=== PATIENT | male | born 1950 | race Caucasian/White ===

== ENCOUNTER → 2017-07-18 | Outpatient (CLI) | payer OTHER ==
[~2017-07-18] MED LIST: ASPI81TA21 PO; ATOR-54 PO; CHOL200010 PO; CMD6 PO; DILT240C74 PO; DIPH25CA50 PO; FLUT0.0529 NAE; INSPMPHMLG; LISI-789 PO; LSX20 PO; METF1TAB53 PO; METO-596 PO; MULTTAB PO; POTA10CA28 PO; SENN-91 PO; SIMV20TA5 PO; SNG10 PO; SPIR25TA PO; VENL150T33 PO; [UNRECOGNIZED DRUG - REMARK] PO
[2017-07-18 14:29] LABS: ESTIMATED AVERAGE GLUCOSE 269 mg/dl; HA1C FLAG Normal (Normal)
[2017-07-18 15:28] LABS: ALKALINE PHOSPHATASE 135 U/L (45-117); ALT/SGPT 36 U/L (12-78); AST/SGOT 14 U/L (15-37); BLOOD UREA NITROGEN 16 mg/dl (7-18); BUN/CREATININE RATIO 15.9 (10-20); CALCIUM 8.7 mg/dl (8.5-10.1); CARBON DIOXIDE 23 mmol/L (21-32); CHLORIDE 99 mmol/L (98-107); CHOLESTEROL 149 mg/dl (0-200); CHOLESTEROL/HDL RATIO 4.1; CREATININE 0.99 mg/dl (0.60-1.40); GLUCOSE 390 mg/dl (70-99); HDL CHOLESTEROL 36 mg/dl; POTASSIUM 4.8 mmol/L (3.5-5.1); SODIUM 133 mmol/L (136-145); TRIGLYCERIDES 528 mg/dl (0-150)
[2017-07-18 16:38] LABS: CREATININE RANDOM URINE 41.8 mg/dl
[2017-07-18 16:50] LABS: RATIO 14.1 mcg/mg (0-30.0)
== END | disposition home or self-care (01) ==
LOC: C.LAB1850 12:22
PROVIDERS: ATTEND Physician Assistant
DX: E11.9 Type 2 diabetes mellitus without complications (principal)

== ENCOUNTER → 2017-11-15 | Outpatient (CLI) | payer OTHER ==
[2017-11-15 13:35] LABS: HEMOGLOBIN A1C 8.1 % (4.5-5.6)
== END | disposition home or self-care (01) ==
LOC: C.LAB1850 12:16
PROVIDERS: ATTEND Physician Assistant
DX: E11.9 Type 2 diabetes mellitus without complications (principal)

== ENCOUNTER → 2017-11-25 | Outpatient (CLI) | payer OTHER | END | disposition home or self-care (01) | LOC: C.LAB1850 09:08 | PROVIDERS: ATTEND Physician Assistant | DX: E03.9 Hypothyroidism, unspecified (principal) ==

== ENCOUNTER → 2018-02-08 | Outpatient (CLI) | payer OTHER ==
[~2018-02-08] MED LIST changes: +ASPI-319 PO; -ASPI81TA21 PO
[2018-02-08 14:30] LABS: ALBUMIN 3.7 gm/dl (3.4-5.0); CALCIUM 9.1 mg/dl (8.5-10.1)
[2018-02-08 14:31] LABS: FOLLICLE STIMULAT HORMONE 6.84 IU/L; LUTEINIZING HORMONE 4.1 IU/L
[2018-02-09 08:06] LABS: HEMOGLOBIN A1C 7.1 % (4.5-5.6)
== END | disposition home or self-care (01) ==
LOC: C.LAB1850 11:52
PROVIDERS: ATTEND Physician Assistant
DX: E11.9 Type 2 diabetes mellitus without complications (principal); Z79.4 Long term (current) use of insulin; E78.5 Hyperlipidemia, unspecified; E03.9 Hypothyroidism, unspecified; E66.9 Obesity, unspecified; I10 Essential (primary) hypertension

== ENCOUNTER 2019-03-27 15:04 | Inpatient (IN) ==
[2019-03-27] MEDS ORDERED: cefTRIAXone SODIUM 2,000 MG in DEXTROSE 5% 50 ML IV STA (15:45)
--- NOTE | 2019-03-27 15:55 | XRay Report ---
XR chest 1V portable HISTORY: 69 years-old Male Sepsis acute sepsis COMPARISON: Chest radiograph 07/12/2014 TECHNIQUE: Portable AP view of the chest FINDINGS: Cardiac silhouette is enlarged, unchanged. Prior median sternotomy. Unchanged mild right hemidiaphrag matic elevation. Subsegmental bibasilar opacities suggest atelectasis. Degenerative changes of the sh oulders and spine. IMPRESSION: Cardiomegaly without acute process. The above report was generated using voice recognition software. It may contain grammatical, syntax o r spelling errors. Electronically signed by: Kt Rojas M.D. 03/27/2019 3:54 PM
[2019-03-27 17:05] LABS: Hemoglobin 14.5 g/dL (14.0-18.0); Immature Granulocytes # (auto) 0.04 K/uL (0.00-0.02); Immature Granulocytes % (auto) 0.4 %; Lymphocytes # (auto) 0.78 K/uL (1.2-3.4); Lymphocytes % (auto) 7.7 %; Mean Corpuscular Hgb Conc 35.4 g/dL (32-36); Mean Corpuscular Volume 84.4 fL (80-100); Mean Platelet Volume 9.2 fL (7.4-10.4); Monocytes # (auto) 0.78 K/uL (0.11-0.59); Monocytes % (auto) 7.7 %; Neutrophils # (auto) 8.51 K/uL (1.4-6.5); Neutrophils % (auto) 84.2 %; Platelet Count 122 K/uL (130-400); RDW Coefficient of Variation 13.9 % (11.5-14.5); RDW Standard Deviation 42.8 fL (36.4-46.3); Red Blood Count 4.86 M/uL (4.7-6.1); White Blood Count 10.11 K/uL (4.8-10.8)
[2019-03-27 17:19] LABS: INR 1.3 (0.9-1.1); Partial Thromboplastin Ratio 1.2; Partial Thromboplastin Time 31.8 Seconds (21.0-31.0); Prothrombin Time 13.5 Seconds (9.0-12.0)
[2019-03-27 17:22] LABS: Alanine Aminotransferase 33 U/L (12-78); Albumin Level 3.2 gm/dl (3.4-5.0); Aspartate Aminotransferase 22 U/L (15-37); BUN Creatinine Ratio 15.2 (10-20); Blood Urea Nitrogen 12 mg/dl (7-18); Calcium 9.1 mg/dl (8.5-10.1); Carbon Dioxide 24 mmol/L (21-32); Chloride 95 mmol/L (98-107); Est GFR (African American) 107.7; Est GFR (Non-African American) 92.9; Glucose 197 mg/dl (70-99); Potassium 3.8 mmol/L (3.5-5.1); Sodium 130 mmol/L (136-145)
[2019-03-27 17:25] LABS: Albumin Globulin Ratio 0.7 (0.9-2); Alkaline Phosphatase 95 U/L (45-117); Bilirubin,Total 1.3 mg/dl (0.2-1); Globulin 4.3 gm/dl (2.5-4.0); Total Protein 7.5 gm/dl (6.4-8.2)
[2019-03-27] MEDS ORDERED: dilTIAZem HCl 5 MG/ML 5 ML VIAL IV STA (17:26)
[2019-03-27] MEDS ORDERED: SODIUM CHLORIDE 0.9% 1000ML 2,000 ML IV ONE (17:27)
[2019-03-27] MEDS ORDERED: MoRPHine SULFATE 4 MG/ML 1 ML CARP\\VIAL IV STA (17:30)
[2019-03-27] MEDS ORDERED: ONDANSETRON INJ 2 MG/ML 2 ML VIAL IV STA (17:30)
[2019-03-27] MEDS ORDERED: dilTIAZem HCl 125 MG in DEXTROSE 5% 100 ML IV SCH (17:30)
[2019-03-27] MEDS ORDERED: METOPROLOL TARTRATE 1 MG/ML VIAL IV STA ×2 (17:35→18:05)
--- NOTE | 2019-03-27 18:28 | Emergency Department Note ---
Entered by Renuka Marcos acting as a scribe for History of Present Illness General Chief complaint: Infection, Wound Stated complaint: WOUND INFECTION ON ABDOMEN Source: patient History of Present Illness Provider complaint: worsening rash Onset (ago): hour(s) (this morning) Location: abdomen Pain Consistency: + other (worsening) Maximum Pain Intensity: 7 Quality: + other (rash) Associated symptoms: + cough and + fever/chills The patient is a 69 year old male with a PMHx of CHF, a cholecystectomy, and a CABG who presents to the Emergency Department with complaints of a worsening rash on his abdomen this morning. He states that his rash began 3 days ago and states that it is painful. He reports a recent cholecystectomy. The patient states that he is currently not on antibiotics. The patient reports a history of cellulitis on his abdomen and his left leg. He does report having a cough and a runny nose but states that they have not been as bad as usual. He reports that he had chills yesterday and felt warm today but did not take his temperature. Home Medications Home Medications Medication Instructions Recorded Confirmed Type aspirin [Aspir-81] 162 mg PO DAILY 06/27/18 03/27/19 History cholecalciferol (vitamin D3) 4,000 unit PO QAM 06/27/18 03/27/19 History diphenhydramine HCl 25 mg PO BID 06/27/18 03/27/19 History furosemide 20 mg PO BID 06/27/18 03/27/19 History lisinopril 2.5 mg PO QAM 06/27/18 03/27/19 History metformin 1,000 mg PO BID 06/27/18 03/27/19 History metoprolol tartrate 150 mg PO BID 06/27/18 03/27/19 History montelukast 10 mg PO PM 06/27/18 03/27/19 History multivitamin 1 tab PO QAM 06/27/18 03/27/19 History potassium chloride 10 meq PO QAM 06/27/18 03/27/19 History sennosides-docusate sodium 1 tab PO 3XWK PRN 06/27/18 03/27/19 History spironolactone 25 mg PO QPM 06/27/18 03/27/19 History atorvastatin 40 mg PO HS 03/27/19 03/27/19 History bupropion HCl 200 mg PO BID 03/27/19 03/27/19 History diltiazem HCl [DILT-XR] 240 mg PO QAM 03/27/19 03/27/19 History dulaglutide [Trulicity] 1.5 mg SUBCUT WK 03/27/19 03/27/19 History fluticasone propionate [Flonase 2 spray INTRANASAL DAILY PRN 03/27/19 03/27/19 History Allergy Relief] insulin degludec [Tresiba 80 unit SUBCUT HS 03/27/19 03/27/19 History FlexTouch U-200] insulin lispro [Humalog KwikPen 60 unit SUBCUT TIDM 03/27/19 03/27/19 History Insulin] levothyroxine 88 mcg PO QAM 03/27/19 03/27/19 History venlafaxine 75 mg PO QAM 03/27/19 03/27/19 History venlafaxine 150 mg PO QAM 03/27/19 03/27/19 History warfarin 6 mg PO 4XWK 03/27/19 03/27/19 History warfarin 9 mg PO 3XWK 03/27/19 03/27/19 History Allergies Allergy/AdvReac Type Severity Reaction Status Date / Time Iodinated Contrast- Oral and Allergy Unknown chest Verified 03/27/19 17:20 IV Dye pain/vomiting Penicillins Allergy Unknown UNKNOWN - Verified 03/27/19 17:20 HAPPENED CHILD Past Med/Surg History Medical History Atrial fibrillation CHRONIC, ON COUMADIN. BPH (benign prostatic hyperplasia) CAD (coronary artery disease) S/P STENT TO RCA 1992 AND 3 VESSEL CABG 2013. Congestive heart failure DIASTOLIC Diabetes mellitus, type 2 IDDM Gout Hyperlipidemia Hypertension Myocardial Infarction X2, LAST ONE IN 2012. S/P CABG 3 VESSEL, [facility]. Obesity Sleep apnea CPAP, MODERATE PER 2018 SLEEP STUDY Stable angina pectoris CLASS 1-2 Surgical History H/O arthroscopy of shoulder H/O colonoscopy History of appendectomy History of arthroscopy LEFT KNEE ACL REPAIR History of cardiac cath 1992, STENT TO RCA 2002, BALLOON ANGIOPLASTY RCA 2013, FOLLOWED BY CABG 3 VESSEL History of cholecystectomy History of coronary artery bypass graft 3 VESSEL 2012, [facility] [place] History of herniorrhaphy UMBILICAL History of repair of ACL History of tonsillectomy Hx of transurethral resection of prostate Social History Preferred Language: Italian Communication Ability: Effective Visual Impairment: No Limitations Beliefs That Will Affect Care: None Current Living Situation: Spouse Feels Safe at Home: Yes Smoking Status: Former smoker Tobacco Type: cigarettes Cigarettes Per Day: ON/OFF SOCIAL SMOKER Second Hand Exposure: No Hx Alcohol Use: Yes Hx Substance Use: No Review of Systems See HPI for pertinent positives & negatives. and A total of 10 systems reviewed and were otherwise negative Physical Exam Vital Signs Vital Signs - 24 hr 03/27/19 15:10 03/27/19 16:54 03/27/19 18:08 Temperature 36.5 C Temperature Source Oral Sepsis Recent Fever Within 48 Hours No Sepsis Action Taken by Nursing No Action Required Pulse Rate 122 H 111 H Pulse Rate [Apical] 122 H Respiratory Rate 20 22 Respiratory Effort / Characteristics Non-Labored Respiratory Depth Normal Blood Pressure 163/89 H 131/87 Blood Pressure [Left Arm] 127/90 Blood Pressure Mean 113 Blood Pressure Mean [Left Arm] 102 Pulse Oximetry 97 94 Oxygen Delivery Method Room Air Room Air GENERAL: Laying in bed, ill, in moderate distress. EYE EXAM: normal conjunctiva. OROPHARYNX: no exudate, no erythema, lips, buccal mucosa, and tongue normal and mucous membranes are moist NECK: supple, no nuchal rigidity, no adenopathy, non-tender LUNGS: Clear to auscultation. Normal chest wall mechanics CHEST: Midsternal incision. HEART: tachycardic, irregularly irregular ABDOMEN: abdomen soft, non-tender, normo-active bowel sounds, no masses, no rebound or guarding. Right upper quadrant incision. BACK: Back is symmetrical on inspection and there is no deformity, no midline tenderness, no CVA tenderness. SKIN: Diffuse erythema of the infra and supraumbilical region which is warm and tender. UPPER EXTREMITIES: upper extremities are grossly normal. LOWER EXTREMITIES: No pitting edema. NEURO EXAM: Normal sensorium, cranial nerves II-XII grossly intact, normal speech, no gross weakness of arms, no gross weakness of legs. Course ED COURSE: Vital signs were reviewed and showed hypertension and tachycardia. The patients medical record was reviewed 1540: The patient was evaluated in room C8. A history and physical were perf ormed. 1732: I updated the patient who verbalized agreement and understanding of the treatment plan. He was agreeable to admission. 1740: Discussed with Lizz ledezma and patient was accepted. Pt was given 2.5mg lopressor IV. 1745: Heart rate trended down to the 90s but then bumped back up to the 120s again. 1810: Patient was redosed with 2.5 mg of Lopressor IV heart rate trended down to 100 1820: Patient heart rate holding steady in the low 100s. Patient is admitted at this time and has been on the floor. Administered Medications Sodium Chloride (Nss 1000ml) 2,000 mls @ 999 mls/hr IV .Q2H1M ONE Stop: 03/27/19 19:27 Last Admin: 03/27/19 17:39 Dose: 999 mls/hr Documented by: [id number] Discontinued Medications Diltiazem HCl (Cardizem) 5 mg IV NOW STA Stop: 03/27/19 17:27 Last Admin: 03/27/19 17:50 Dose: Not Given Documented by: [id number] Ceftriaxone Sodium 2,000 mg/ (Dextrose) 70 mls @ 100 mls/hr IV NOW STA Stop: 03/27/19 16:26 Last Infusion: 03/27/19 17:58 Dose: 0 mls/hr Documented by: [id number] Admin: 03/27/19 16:53 Dose: 100 mls/hr Documented by: [id number] Metoprolol Tartrate (Lopressor) 2.5 mg IV NOW STA Stop: 03/27/19 17:36 Last Admin: 03/27/19 17:39 Dose: 2.5 mg Documented by: [id number] Metoprolol Tartrate (Lopressor) 2.5 mg IV NOW STA Stop: 03/27/19 18:06 Last Admin: 03/27/19 18:08 Dose: 2.5 mg Documented by: [id number] Morphine Sulfate (Morphine Sulfate) 3 mg IV NOW STA Stop: 03/27/19 17:31 Last Admin: 03/27/19 17:38 Dose: 3 mg Documented by: [id number] Ondansetron HCl (Zofran) 4 mg IV NOW STA Stop: 03/27/19 17:31 Last Admin: 03/27/19 17:39 Dose: 4 mg Documented by: [id number] Medical Decision Making Differential Diagnosis Differential diagnosis includes etiologies such as cellulitis, abscess, MRSA infection, DVT, necrotizing fasciitis, dermatitis, drug eruption, as well as others were entertained. Medical Records Attestation: I reviewed the patient's medical records. Home Medications Current Medication List: was personally reviewed by me Laboratory Data Attestation: I reviewed the patient's lab results. Result diagrams: 03/27/19 16:49 03/27/19 16:49 Lab Results 03/27/19 03/27/19 03/27/19 Range/Units 16:49 16:49 16:49 WBC 10.11 (4.8-10.8) K/uL RBC 4.86 (4.7-6.1) M/uL Hgb 14.5 (14.0-18.0) g/dL Hct 41.0 L (42-52) % MCV 84.4 (80-100) fL MCH 29.8 (25-34) pg MCHC 35.4 (32-36) g/dL RDW Std Deviation 42.8 (36.4-46.3) fL RDW Coeff of Adalberto 13.9 (11.5-14.5) % Plt Count 122 L (130-400) K/uL MPV 9.2 (7.4-10.4) fL Immature Gran % (Auto) 0.4 % Neut % (Auto) 84.2 % Lymph % (Auto) 7.7 % Scott % (Auto) 7.7 % Eos % (Auto) 0.0 % Baso % (Auto) 0.0 % Immature Gran # (Auto) 0.04 H (0.00-0.02) K/uL Neut # (Auto) 8.51 H (1.4-6.5) K/uL Lymph # (Auto) 0.78 L (1.2-3.4) K/uL Scott # (Auto) 0.78 H (0.11-0.59) K/uL Eos # (Auto) 0.00 (0-0.5) K/uL Baso # (Auto) 0.00 (0-0.2) K/uL PT 13.5 H (9.0-12.0) Seconds INR 1.3 H (0.9-1.1) APTT 31.8 H (21.0-31.0) Seconds PTT Ratio 1.2 Sodium 130 L (136-145) mmol/L Potassium 3.8 (3.5-5.1) mmol/L Chloride 95 L (98-107) mmol/L Carbon Dioxide 24 (21-32) mmol/L Anion Gap 11.0 (3-11) BUN 12 (7-18) mg/dl Creatinine 0.79 (0.6-1.4) mg/dl Est Cr Clr Drug Dosing Not Reportable Est GFR ( Amer) 107.7 Est GFR (Non-Af Amer) 92.9 BUN/Creatinine Ratio 15.2 (10-20) Glucose 197 H (70-99) mg/dl Lactate (0.4-2.0) mmol/L Calcium 9.1 (8.5-10.1) mg/dl Total Bilirubin 1.3 H (0.2-1) mg/dl AST 22 (15-37) U/L ALT 33 (12-78) U/L Alkaline Phosphatase 95 (45-117) U/L Total Protein 7.5 (6.4-8.2) gm/dl Albumin 3.2 L (3.4-5.0) gm/dl Globulin 4.3 H (2.5-4.0) gm/dl Albumin/Globulin Ratio 0.7 L (0.9-2) 03/27/19 Range/Units 16:49 WBC (4.8-10.8) K/uL RBC (4.7-6.1) M/uL Hgb (14.0-18.0) g/dL Hct (42-52) % MCV (80-100) fL MCH (25-34) pg MCHC (32-36) g/dL RDW Std Deviation (36.4-46.3) fL RDW Coeff of Adalberto (11.5-14.5) % Plt Count (130-400) K/uL MPV (7.4-10.4) fL Immature Gran % (Auto) % Neut % (Auto) % Lymph % (Auto) % Scott % (Auto) % Eos % (Auto) % Baso % (Auto) % Immature Gran # (Auto) (0.00-0.02) K/uL Neut # (Auto) (1.4-6.5) K/uL Lymph # (Auto) (1.2-3.4) K/uL Scott # (Auto) (0.11-0.59) K/uL Eos # (Auto) (0-0.5) K/uL Baso # (Auto) (0-0.2) K/uL PT (9.0-12.0) Seconds INR (0.9-1.1) APTT (21.0-31.0) Seconds PTT Ratio Sodium (136-145) mmol/L Potassium (3.5-5.1) mmol/L Chloride (98-107) mmol/L Carbon Dioxide (21-32) mmol/L Anion Gap (3-11) BUN (7-18) mg/dl Creatinine (0.6-1.4) mg/dl Est Cr Clr Drug Dosing Est GFR ( Amer) Est GFR (Non-Af Amer) BUN/Creatinine Ratio (10-20) Glucose (70-99) mg/dl Lactate 2.2 H* (0.4-2.0) mmol/L Calcium (8.5-10.1) mg/dl Total Bilirubin (0.2-1) mg/dl AST (15-37) U/L ALT (12-78) U/L Alkaline Phosphatase (45-117) U/L Total Protein (6.4-8.2) gm/dl Albumin (3.4-5.0) gm/dl Globulin (2.5-4.0) gm/dl Albumin/Globulin Ratio (0.9-2) Imaging Data Radiologist's Impression: Radiology results as stated below per my review and the radiologist's interpretation: XR chest 1V portable HISTORY: 69 years-old Male Sepsis acute sepsis COMPARISON: Chest radiograph 07/12/2014 TECHNIQUE: Portable AP view of the chest FINDINGS: Cardiac silhouette is enlarged, unchanged. Prior median sternotomy. Unchanged mild right hemidiaphragmatic elevation. Subsegmental bibasilar opacities suggest atelectasis. Degenerative changes of the shoulders and spine. IMPRESSION: Cardiomegaly without acute process. The above report was generated using voice recognition software. It may contain grammatical, syntax or spelling errors. Electronically signed by: Kt Rojas M.D. 03/27/2019 3:54 PM ECG Data Attestation: I personally reviewed and interpreted this ECG as follows: Indication: tachycardia Rate (beats per minute): 127 Rhythm: atrial fibrillation (with RVR) Findings: + PVC and + Q waves (Inferior) Blood Pressure Blood Pressure Findings: Elevated blood pressure Blood Pressure Disposition: further management by hospitalist REBECCA Olsen Patient is a 69-year-old male with a past medical history of cellulitis, CAD with bypass, A. fib with RVR who presents the ER for abdominal pain. He notes he started noticing redness on his belly which started this past Tuesday. Has been gradually worsened and significantly worsened over the past 24 hours. IV w as established blood work was obtained. Labs show no significant leukocytosis or anemia. Platelets show a mild thrombocytopenia at 122. INR was subtherapeutic at 1.3. BMP with mild hyponatremia at 130. Lactate was elevated 2.2. Glucose was elevated at 197. T bili slightly elevated at 1.3. EKG was fairly consistent with old but showing A. fib with RVR. Did have early R wave progression in V1 which consistent with his old as well. Patient has no chest pain or shortness of breath. Heart rate ranged from 130s to 160s intermittently. Patient was given 2 L IV fluid judiciously. Following this patient was initially given 2.5 mg of Lopressor. Heart rate trended down into the high 1 teens/low 120s. I only gave him 2.5 initially as he did drop down into the 90s at first. As he remained steady and the 1 teens to 120s I gave him an additional 2.5 mg of Lopressor and his heart rate was trending in the low 100s. Patient was already given 2 g of Rocephin. Discussed with the hospital ist. Patient was updated bedside. He will be admitted secondary to a cellulitis with an elevated left 2.2 and A. fib with RVR. He was monitored closely while in the ER. He was reevaluated multiple times. He was also given 1 dose of IV morphine while in the ER along with Zofran. Impression & Plan Cellulitis, Subtherapeutic international normalized ratio (INR), Elevated lactic acid level, Atrial fibrillation with RVR Critical Care Time Critical Care Time: Yes Total Critical Care Time: 30 I have personally spent approximately 30 minutes of critical care time in the direct management of this patient. This includes bedside care, interpretation of diagnostic studies, and testing, discussion with consultants, patient, and family members, and other required patient management activities. This 30 minutes is in excess of all separately billable procedures. Discharge Plan Visit Data Chief Complaint: Infection, Wound Stated Complaint: WOUND INFECTION ON ABDOMEN ED Provider: Jose Alfredo Lubin Discharge Problem: Cellulitis, Subtherapeutic international normalized ratio (INR), Elevated lactic acid level, Atrial fibrillation with RVR Patient Disposition: Being Evaluated by Hospitalist Forms Stand Alone Forms: My [facility] Prescriptions Prescriptions: No Action venlafaxine 75 mg capsule,extended release 24hr 75 mg PO QAM RF: 0 diltiazem HCl [DILT-XR] 240 mg capsule,ext.rel 24h degradable 240 mg PO QAM RF: 0 venlafaxine 150 mg capsule,extended release 24hr 150 mg PO QAM RF: 0 Tresiba FlexTouch U-200 200 unit/mL (3 mL) insulin pen 80 unit subcut HS RF: 0 Trulicity 1.5 mg/0.5 mL pen injector 1.5 mg subcut WK RF: 0 atorvastatin 40 mg tablet 40 mg PO HS RF: 0 levothyroxine 88 mcg tablet 88 mcg PO QAM RF: 0 warfarin 6 mg tablet 6 mg PO 4XWK RF: 0 warfarin 6 mg tablet 9 mg PO 3XWK RF: 0 bupropion HCl 200 mg tablet sustained-release 12 hr 200 mg PO BID RF: 0 multivitamin Tablet 1 tab PO QAM RF: 0 potassium chloride 10 mEq Capsule, Extended Release 10 meq PO QAM RF: 0 metoprolol tartrate 100 mg Tablet 150 mg PO BID RF: 0 sennosides-docusate sodium 8.6-50 mg Tablet 1 tab PO 3XWK PRN (Reason: Constipation) RF: 0 aspirin [Aspir-81] 81 mg Tablet,Delayed Release (Dr/Ec) 162 mg PO DAILY RF: 0 spironolactone 25 mg Tablet 25 mg PO QPM RF: 0 diphenhydramine HCl 25 mg Capsule 25 mg PO BID RF: 0 metformin 1,000 mg Tablet 1,000 mg PO BID RF: 0 montelukast 10 mg Tablet 10 mg PO PM RF: 0 furosemide 20 mg Tablet 20 mg PO BID RF: 0 lisinopril 2.5 mg Tablet 2.5 mg PO QAM RF: 0 insulin lispro 100 unit/mL Cartridge 1 sliding scale dose SUBCUT UD RF: 0 cholecalciferol (vitamin D3) 2,000 unit Tablet 4,000 unit PO QAM RF: 0 Flonase Sensimist 1 spray JONATHON UD PRN (Reason: Allergy Symptoms) RF: 0 Referrals Referrals: Aurora Lawrence DO [Primary Care Provider] - Discharge Problem: Cellulitis Qualifiers: Site of cellulitis: trunk Site of cellulitis of trunk: abdominal wall Qualified Code(s): L03.311 - Cellulitis of abdominal wall The scribe's documentation has been prepared under my direction and personally reviewed by me in its entirety. I confirm that the note above accurately reflects all work, treatment, procedures, and medical decision making performed by me.
[2019-03-27] MEDS ORDERED: ACETAMINOPHEN 325 MG TAB PO PRN (19:03)
--- NOTE | 2019-03-27 19:27 | History & Physical Report ---
Date of Service March 27, 2019 Assessment & Plan (1) Abdominal wall cellulitis: -Admit to telemetry -Patient presenting from home with reports of increasing abdominal erythema for the past 3 days -In the ED, patient is afebrile, no leukocytosis, BP stable, does have elevated heart rate however has not taken medications for the past 3 days; lactic acid mildly elevated 2.2 -Received IV ceftriaxone in the ED; will start Unasyn for concerns of possible cat scratch, check MRSA nasal swab and add vancomycin if positive -No open areas or drainage to culture; no signs of abscess on exam -Follow blood cultures -Received 2 L IVF in the ED, will hold on additional for now due to history of CHF, trend lactic acid (2) Atrial fibrillation with RVR: -History of atrial fibrillation -Has not taken medications in the past 3 days -Received IV metoprolol 5 mg in the ED -will give patient his home doses of diltiazem and metoprolol, monitor heart rate and provide additional medication if needed -INR 1.3, anticoagulated on Coumadin, will resume home dosing; no need for bridging at this time (3) Chronic diastolic CHF (congestive heart failure): -Patient appears euvolemic on exam -Received 2 L IVF in the ED -Hold diuretics for today, in the setting of infection and mildly elevated lactic acid -consider resuming tomorrow (4) CAD (coronary artery disease): -Stable, no reports of chest pain -Continue aspirin, statin, beta-shawnee, DIONICIO inhibitor (5) DM type 2 (diabetes mellitus, type 2): -Hgb A1c 7.2 03/2019 -Hold oral agents and utilize Lantus and NovoLog per protocol while hospitalized -Glycemic pharmacy consult (6) Hypertension: -BP controlled, continue lisinopril, diltiazem, metoprolol (7) Depression: -Continue venlafaxine and bupropion (8) SOLEDAD on CPAP: -CPAP as per home settings (9) Hypothyroidism: -Continue levothyroxine (10) DVT prophylaxis: -SQ Lovenox 40 mg until INR > 2.0 History of Present Illness Chief Complaint: Skin infection/rash on abdomen Primary Care Provider: Aurora Lawrence DO 69-year-old male who presents the ED for evaluation of skin infection/rash on his abdomen. Patient reports this developed about 3 days ago and has been progressively getting worse. Patient denies any known trauma or injury to his abdominal wall. However upon questioning, he does have cats and dogs as pets and reports that the cats walk over his abdomen. There is a small scratch noted on the abdomen where the patient reports the rash/infection started. He reports feeling generally weak. Reports a fever of 101 at home with some associated chills. Reports that he has felt lightheaded and dizzy however denies any syncopal event. He denies chest pain shortness of breath. No abdominal pain, nausea, vomiting, diarrhea. He denies any urinary symptoms. He reports sinus congestion, pressure, and postnasal drip which seems to be a chronic issue. Patient reports he has not taken his medications for the past 2 days and has forgotten to fill his pillbox. In the ED, patient was found to be in A. fib with RVR. He was given a total of 5 mg of IV metoprolol. Exam revealed an extensive cellulitis on his anterior abdominal wall. He is afebrile, no leukocytosis. BP stable. Lactic acid is mildly elevated 2.2. He was given IVF and IV ceftriaxone. Allergies Allergy/AdvReac Type Severity Reaction Status Date / Time Iodinated Contrast- Oral and Allergy Unknown chest Verified 03/27/19 17:20 IV Dye pain/vomiting Penicillins Allergy Unknown UNKNOWN - Verified 03/27/19 17:20 HAPPENED CHILD Home Medications Home Medications Medication Instructions Recorded Confirmed Type aspirin [Aspir-81] 162 mg PO DAILY 06/27/18 03/27/19 History cholecalciferol (vitamin D3) 4,000 unit PO QAM 06/27/18 03/27/19 History diphenhydramine HCl 25 mg PO BID 06/27/18 03/27/19 History furosemide 20 mg PO BID 06/27/18 03/27/19 History lisinopril 2.5 mg PO QAM 06/27/18 03/27/19 History metformin 1,000 mg PO BID 06/27/18 03/27/19 History metoprolol tartrate 150 mg PO BID 06/27/18 03/27/19 History montelukast 10 mg PO PM 06/27/18 03/27/19 History multivitamin 1 tab PO QAM 06/27/18 03/27/19 History potassium chloride 10 meq PO QAM 06/27/18 03/27/19 History sennosides-docusate sodium 1 tab PO Q2D 06/27/18 03/27/19 History spironolactone 25 mg PO QPM 06/27/18 03/27/19 History atorvastatin 40 mg PO HS 03/27/19 03/27/19 History bupropion HCl 200 mg PO BID 03/27/19 03/27/19 History diltiazem HCl [DILT-XR] 240 mg PO QAM 03/27/19 03/27/19 History dulaglutide [Trulicity] 1.5 mg SUBCUT WK 03/27/19 03/27/19 History fluticasone propionate [Flonase 2 spray INTRANASAL DAILY PRN 03/27/19 03/27/19 History Allergy Relief] insulin degludec [Tresiba 80 unit SUBCUT HS 03/27/19 03/27/19 History FlexTouch U-200] insulin lispro [Humalog KwikPen unit SUBCUT TIDM 03/27/19 History Insulin] levothyroxine 88 mcg PO QAM 03/27/19 03/27/19 History venlafaxine 75 mg PO QAM 03/27/19 03/27/19 History venlafaxine 150 mg PO QAM 03/27/19 03/27/19 History warfarin 6 mg PO SUTUTHSA 03/27/19 03/27/19 History warfarin 9 mg PO MOWEFR 03/27/19 03/27/19 History Past Med/Surg History Medical History Depression (Chronic) Chronic anticoagulation (Chronic) BPH (benign prostatic hyperplasia) (Chronic) Hypertension (Chronic) Chronic diastolic CHF (congestive heart failure) (Chronic) CAD (coronary artery disease) (Chronic) 1993-RCA stent 2014-CABG x3 Chronic rhinitis (Chronic) SOLEDAD on CPAP (Chronic) Hypothyroidism (Chronic) Dyslipidemia (Chronic) Gout (Chronic) DM type 2 (diabetes mellitus, type 2) (Chronic) Surgical History S/P CABG x 3 (Chronic) History of arthroscopy of left shoulder (Chronic) History of repair of anterior cruciate ligament of left knee (Chronic) History of tonsillectomy and adenoidectomy (Chronic) S/P TURP (Chronic) History of appendectomy (Chronic) History of cholecystectomy (Chronic) Family History Father Bladder cancer Mother Breast cancer Social History Preferred Language: Korean Communication Ability: Effective Visual Impairment: No Limitations Blood Donor Unit Assistant Required: No Beliefs That Will Affect Care: None Current Living Situation: Spouse Other Information That Helps Us Care for You: No Feels Safe at Home: Yes Safety Concerns: Feels Safe At This Time Smoking Status: Former smoker Tobacco Type: cigarettes Second Hand Exposure: No Hx Alcohol Use: Yes Alcohol type: beer Alcohol Intake Frequency: Rarely Hx Substance Use: No Review of Systems Review of Systems: ROS per HPI, all other systems reviewed and negative Physical Exam Constitutional: WD/WN, vitals as above + obese Eyes: PERRL, conjunctivae normal, anicteric sclerae ENMT: external ear and nose normal, oropharynx normal Mouth: + poor dentition Respiratory: normal respiratory effort, lungs clear to auscultation Cardiovascular: Rate/Rhythm: + tachycardic and + irregularly irregular Vessels: normal peripheral pulses Extremities: no edema Gastrointestinal (Abdomen): normal bowel sounds, soft, nontender, no hepatosplenomegaly Musculoskeletal: no cyanosis or clubbing, extremities motor strength 5/5 Skin: Skin is warm and dry; significant erythema covering most of the anterior abdominal wall, warm to touch, no significant open areas or drainage noted, small superficial abrasion noted above the navel Neurologic: PERRL, EOMI, accommodation nl, no face palsy, no dysarthria Psychiatric: A+Ox3, euthymic affect Results & Data Vital Signs (Past 12 Hours) Vital Signs Temp Pulse Pulse Resp BP BP Pulse Ox 03/27/19 18:37 120 H 20 131/87 95 03/27/19 18:08 111 H 131/87 03/27/19 16:54 122 H 22 127/90 94 03/27/19 15:10 36.5 C 122 H 20 163/89 H 97 Laboratory Results Short CBC 03/27/19 Range/Units 16:49 WBC 10.11 (4.8-10.8) K/uL Hgb 14.5 (14.0-18.0) g/dL Hct 41.0 L (42-52) % Plt Count 122 L (130-400) K/uL BMP 03/27/19 16:49 Sodium 130 L Potassium 3.8 Chloride 95 L Carbon Dioxide 24 BUN 12 Creatinine 0.79 Glucose 197 H Calcium 9.1 Liver Function 03/27/19 Range/Units 16:49 Total Bilirubin 1.3 H (0.2-1) mg/dl AST 22 (15-37) U/L ALT 33 (12-78) U/L Alkaline Phosphatase 95 (45-117) U/L Albumin 3.2 L (3.4-5.0) gm/dl Diagnostic Findings CXR IMPRESSION: Cardiomegaly without acute process. Code Status & VTE Plan Code Status Patient is a full code as per my discussion with him. VTE Prophylaxis Plan VTE Prophylaxis will be ordered: Yes Supervising Physician Co-Signing Physician Notes Patient is a 69-year-old male with multiple comorbidities presents with history of erythematous rash on his abdomen which has been progressively worsening since 3 days duration. He denies any trauma, insect bite but admits to have cats and dogs at home which could have caused a scratch on his abdomen. Patient states that he has generalized weakness and admits to missing his medications at least for last couple of days. He was noted to be in A. fib RVR while in ED. His INR is subtherapeutic. Also noted to have hyponatremia, hypochloremia. His glucose is elevated at 197. He admits to missing his metformin and insulin therapy. His lactate is elevated at 2.2. He received IV fluids in ED. On exam patient is obese, no apparent distress, normocephalic atraumatic, lungs are clear to auscultation, normal breath sounds, irregularly irregular rhythm,+ tachycardia, no murmur, abdomen soft, distended, erythematous rash with the abrasion noted. Grossly no focal neurological deficits, no pedal edema. Patient is admitted for management of A. fib RVR, abdominal wall cellulitis. Agree with resuming Cardizem, metoprolol, Coumadin. Lovenox SQ until INR is therapeutic. Monitor on telemetry unit. Monitor electrolytes. Check TSH, free T4. Will trend lactate levels. Resume insulin therapy and monitor blood sugar levels. Agree with IV Unasyn for abdominal wall cellulitis. Blood cultures obtained. MRSA screen pending. Consider adding vancomycin if MRSA positive. I personally reviewed the record. Patient is interviewed and examined at bedside. Patient's care is coordinated with Lizz Garcia TABLE OPERATOR. Please refer to the documentation above for details of patient's presentation and for discussion of other issues.
[2019-03-27] MEDS ORDERED: PATIENT'S HEIGHT AND/OR WEIGHT NEEDED SCH (19:30)
[2019-03-27] MEDS ORDERED: PHARMACY GLYCEMIC MGMT CONSULT PRN (19:35)
[2019-03-27] MEDS ORDERED: INSULIN GLARGINE 100 UNIT/ML VIAL SC STA (20:00)
[2019-03-27] MEDS: ENOXAPARIN INJ 40 MG/0.4 ML SYR SQ SCH (20:34)
[2019-03-27] MEDS: METOPROLOL TARTRATE 100 MG TAB PO SCH (20:34)
[2019-03-27] MEDS: BuPROPion SR 100 MG TABCR PO SCH (20:35)
[2019-03-27] MEDS: ATORVASTATIN 40 MG TAB PO SCH (20:35)
[2019-03-27] MEDS: WARFARIN SOD 6 MG TAB PO SCH (20:35)
[2019-03-27] MEDS: INSULIN ASPART 100 UNITS/ML 3 ML PEN SC SCH (20:36)
[2019-03-27] MEDS: dilTIAZem HCL 240 MG CAPCR PO SCH (20:37)
[2019-03-27] MEDS: AMPICILLIN/SULBACTAM SOD 3,000 MG in 0.9 % SODIUM CHLORIDE 100 ML IV SCH (20:37)
[2019-03-27] MEDS: MONTELUKAST SODIUM 10 MG TABLET PO SCH (20:38)
[2019-03-27 22:06] LABS: Appearance Urine Clear (Clear); Bacteria Urine Automated Negative (Negative); Bilirubin Urine Negative (Negative); Blood Urine Trace (Negative); Color Urine Yellow; Epithelial Cell Urine Auto 20-30 /lpf (0-5); Glucose Urine UA 3+ (Negative); Ketones Urine 2+ (Negative); Leukocyte Esterase Urine Negative (Negative); Nitrite Urine Negative (Negative); Protein Urine 1+ (Negative); RBC Urine Automated 0-4 /hpf (0-4); Specific Gravity Urine 1.032 (1.000-1.030); Urobilinogen Urine Negative (Negative)
[2019-03-28] MEDS: INSULIN ASPART 100 UNITS/ML 3 ML PEN SC SCH ×6 (00:07→20:42)
[2019-03-28] MEDS: AMPICILLIN/SULBACTAM SOD 3,000 MG in 0.9 % SODIUM CHLORIDE 100 ML IV SCH ×4 (02:27→20:33)
[2019-03-28 05:56] LABS: Hematocrit (blood only) 40.7 % (42-52); Hemoglobin 13.8 g/dL (14.0-18.0); Mean Corpuscular Hgb Conc 33.9 g/dL (32-36); Mean Platelet Volume 9.2 fL (7.4-10.4); Platelet Count 131 K/uL (130-400); RDW Coefficient of Variation 14.3 % (11.5-14.5); RDW Standard Deviation 45.2 fL (36.4-46.3); Red Blood Count 4.68 M/uL (4.7-6.1); White Blood Count 7.44 K/uL (4.8-10.8)
[2019-03-28 06:10] LABS: INR 1.3 (0.9-1.1); Prothrombin Time 12.7 Seconds (9.0-12.0)
[2019-03-28] MEDS: LEVOTHYROXINE SODIUM 88 MCG TABLET PO SCH (06:13)
[2019-03-28 06:24] LABS: BUN Creatinine Ratio 16.6 (10-20); Calcium 8.3 mg/dl (8.5-10.1); Creatinine Clr Calc Pharmacy 121.1 ml/min; Est GFR (African American) 107.1; Est GFR (Non-African American) 92.4; Magnesium 2.4 mg/dl (1.8-2.4); Potassium 3.8 mmol/L (3.5-5.1)
--- NOTE | 2019-03-28 08:14 | Pharmacy Report ---
Pharmacy Glycemic Short Note 2 - Date of Service March 28, 2019 - Glycemic Short BSG Results (Last 24 hours): 03/27/19 03/27/19 03/28/19 16:49 19:47 00:05 Glucose 197 H POC Glucose 170 H 196 H 03/28/19 03/28/19 03/28/19 04:02 05:33 07:11 Glucose 133 H POC Glucose 139 H 132 H OUTPATIENT ANTIDIABETIC REGIMEN (confirmed with patient at bedside): * Insulin Degludec U200 (Tresiba) 80 units Q HS * Humalog SQ with meals, typically ~ 5 units per meal. Patient states he counts carbs and uses CR of 1 unit per 5gm CHO's. Eats carb restricted diet. * Dulaglutide (Trulicity) 1.5mg SQ weekly on Mondays * Metformin 1000mg PO BID * A1c = 7.2% 03/19/19 The patient is currently receiving: * Basal Insulin: Lantus 70 units SQ x 1 last evening * Correctional Insulin: Novolog Correction per scale ACHS Goal Range: Low 110 mg/dL - High 140 mg/dL Correction Factor: 20 mg/dL/unit * Prandial Insulin: Per carb ratio of 1 unit per 6 grams CHO consumed * Oral Agents: None ASSESSMENT: * Reasonably well controlled type 2 diabetic admitted for abdominal wall cellulitis in the setting of recent cholecystectomy * Fasting BSG 132 this AM w/ 70 units of Lantus on board. Will continue HS Lantus dose however will do so per scale as pt's current insulin regimen is rather heavily weighted in favor of basal insulin. * Patient does count carbs and typically uses a carb ratio to cover his meals w/ Humalog. Will use a slightly lesser does of Novolog w/ meals vs home regimen initially. He may actually require a larger dose of Novolog with meals w/o Dulaglutide on board. His last dose of Dulaglutide was given > 1 week ago. Will follow post-prandial BSG trend today and adjust accordingly. PLAN FOR INPATIENT GLYCEMIC CONTROL: * Hold outpatient oral diabetes medications (metformin, * Basal insulin * Lantus Q HS per the following scale: * 0 units if less than 100 * 40 units if 100-140 * 60 units if 141-200 * 70 units if above 200 * Bolus insulin * NovoLog per scale ACHS or Q6hrs while NPO * Goal Range: Low 110 mg/dL - High 140 mg/dL * Correction Factor: 20 mg/dL/unit * Nutritional / Prandial insulin per carb ratio of 1 unit per 6 grams CHO consumed PLAN FOR DISCHARGE: * may resume home regimen on discharge if no contraindications present
[2019-03-28] MEDS: VENLAFAXINE HCL XR 75 MG CAPXR PO SCH (08:15)
[2019-03-28] MEDS: CHOLECALCIFEROL 1,000 UNITS TAB PO SCH (08:15)
[2019-03-28] MEDS: METOPROLOL TARTRATE 100 MG TAB PO SCH ×2 (08:16→20:45)
[2019-03-28] MEDS: DOCUSATE SODIUM/SENNA 50/8.6MG TAB PO SCH (08:16)
[2019-03-28] MEDS: BuPROPion SR 100 MG TABCR PO SCH ×2 (08:16→20:45)
[2019-03-28] MEDS: POTASSIUM CHLORIDE 10 MEQ TABCR PO SCH (08:16)
[2019-03-28] MEDS: VENLAFAXINE HCL XR 150 MG CAPXR PO SCH (08:16)
[2019-03-28] MEDS: LISINOPRIL 2.5 MG TAB PO SCH (08:16)
[2019-03-28] MEDS: ASPIRIN 81 MG ECTAB PO SCH (08:16)
[2019-03-28] MEDS: MULTIVITAMIN TAB PO SCH (08:16)
[2019-03-28] MEDS: dilTIAZem HCL 240 MG CAPCR PO SCH (08:17)
[2019-03-28] MEDS ORDERED: CHOLECALCIFEROL 4000 UNIT PO SCH (09:00)
--- NOTE | 2019-03-28 11:18 | Hospitalist Progress Note ---
Date of Service March 28, 2019 Assessment & Plan (1) Abdominal wall cellulitis: -Patient presenting from home with reports of increasing abdominal erythema for the past 3 days -Afebrile, no leukocytosis, BP stable, does have elevated heart rate however has not taken medications for the past 3 days; lactic acid mildly elevated 2.2 -Received IV ceftriaxone in the ED; started Unasyn for concerns of possible cat scratch though patient doesnt think so. MRSA-neg -No open areas or drainage to culture; no signs of abscess on exam -Blood cx- pending (2) Atrial fibrillation with RVR: -History of atrial fibrillation -Has not taken medications in the past 3 days so HR was in 110s when he came to ER, now normal rate -Received IV metoprolol 5 mg in the ED -Continue with home dose of diltiazem and metoprolol -Coumadin- continue with INR subtherapeutic (3) Chronic diastolic CHF (congestive heart failure): -Patient appears euvolemic on exam -Received 2 L IVF in the ED -Held diuretics initially, okay to restart (4) CAD (coronary artery disease): -Stable, no reports of chest pain -Continue aspirin, statin, beta-shawnee, DIONICIO inhibitor (5) DM type 2 (diabetes mellitus, type 2): -Hgb A1c 7.2 03/2019 -Hold oral agents and utilize Lantus and NovoLog per protocol while hospitalized -Glycemic pharmacy consult (6) Hypertension: -BP controlled, continue lisinopril, diltiazem, metoprolol (7) Depression: -Continue venlafaxine and bupropion (8) SOLEDAD on CPAP: -CPAP as per home settings (9) Hypothyroidism: -Continue levothyroxine (10) DVT prophylaxis: -SQ Lovenox 40 mg until INR > 2.0 Disposition Ok to transfer to med surg [facility] in progress Expected discharge home when stable Subjective Patient is feeling a little better. Continues to have significant abdominal wall redness. Soreness has improved. No fever, chills, nausea, vomiting. Physical Exam Physical Exam: GENERAL- AAOX3, No acute distress, OBESE + LUNGS- Air entry bilaterally equal. No rales, rhonchi, crackles, wheezes heard. HEART- Regular rate and rhythm. No murmurs ABDOMEN-Erythema involving significant area of abdomen (marked), Soft, non tender, non distended EXTREMITIES- Good peripheral pulses, no edema Results & Data Vital Signs (Past 12 Hours) Vital Signs Temp Pulse Pulse Resp BP BP Pulse Ox 03/28/19 11:09 36.4 C L 87 19 102/67 95 03/28/19 08:00 91 H 03/28/19 07:09 36.6 C 96 H 19 127/80 94 03/28/19 04:02 36.5 C 79 20 115/76 97 03/28/19 00:09 36.7 C 87 19 120/80 97
[2019-03-28] MEDS ORDERED: WARFARIN SOD 3 MG TAB PO SCH (16:00)
[2019-03-28] MEDS: INSULIN GLARGINE 100 UNIT/ML VIAL SC SCH (20:35)
[2019-03-28] MEDS: ATORVASTATIN 40 MG TAB PO SCH (20:45)
[2019-03-28] MEDS: MONTELUKAST SODIUM 10 MG TABLET PO SCH (20:45)
[2019-03-28] MEDS ORDERED: PROMETHAZINE HCL 12.5 MG in SODIUM CHLORIDE 0.9% 50 ML IV PRN (21:47)
[2019-03-28] MEDS: ENOXAPARIN INJ 40 MG/0.4 ML SYR SQ SCH (22:40)
[2019-03-29] MEDS ORDERED: INSULIN ASPART 100 UNITS/ML 3 ML PEN SC ONE (02:00)
[2019-03-29] MEDS: AMPICILLIN/SULBACTAM SOD 3,000 MG in 0.9 % SODIUM CHLORIDE 100 ML IV SCH ×4 (02:05→21:29)
[2019-03-29] MEDS: LEVOTHYROXINE SODIUM 88 MCG TABLET PO SCH (05:44)
[2019-03-29 06:00] LABS: Basophils # (auto) 0.02 K/uL (0-0.2); Basophils % (auto) 0.3 %; Eosinophils # (auto) 0.14 K/uL (0-0.5); Eosinophils % (auto) 1.8 %; Hematocrit (blood only) 40.6 % (42-52); Hemoglobin 13.7 g/dL (14.0-18.0); Immature Granulocytes # (auto) 0.11 K/uL (0.00-0.02); Immature Granulocytes % (auto) 1.4 %; Lymphocytes # (auto) 1.44 K/uL (1.2-3.4); Mean Corpuscular Hgb Conc 33.7 g/dL (32-36); Mean Corpuscular Volume 86.9 fL (80-100); Mean Platelet Volume 9.5 fL (7.4-10.4); Monocytes # (auto) 1.04 K/uL (0.11-0.59); Neutrophils # (auto) 5.23 K/uL (1.4-6.5); Neutrophils % (auto) 65.5 %; Platelet Count 162 K/uL (130-400); RDW Coefficient of Variation 14.3 % (11.5-14.5); RDW Standard Deviation 45.1 fL (36.4-46.3); Red Blood Count 4.67 M/uL (4.7-6.1); White Blood Count 7.98 K/uL (4.8-10.8)
[2019-03-29 06:28] LABS: BUN Creatinine Ratio 17.1 (10-20); Calcium 8.7 mg/dl (8.5-10.1); Creatinine Clr Calc Pharmacy 130.5 ml/min; Est GFR (African American) 110.6; Est GFR (Non-African American) 95.4; Potassium 3.6 mmol/L (3.5-5.1)
[2019-03-29] MEDS: INSULIN ASPART 100 UNITS/ML 3 ML PEN SC SCH ×4 (08:26→21:35)
[2019-03-29] MEDS: MULTIVITAMIN TAB PO SCH (08:37)
[2019-03-29] MEDS: VENLAFAXINE HCL XR 150 MG CAPXR PO SCH (08:37)
[2019-03-29] MEDS: VENLAFAXINE HCL XR 75 MG CAPXR PO SCH (08:37)
[2019-03-29] MEDS: BuPROPion SR 100 MG TABCR PO SCH ×2 (08:37→21:42)
[2019-03-29] MEDS: CHOLECALCIFEROL 1,000 UNITS TAB PO SCH (08:38)
[2019-03-29] MEDS: LISINOPRIL 2.5 MG TAB PO SCH (08:38)
[2019-03-29] MEDS: METOPROLOL TARTRATE 100 MG TAB PO SCH ×2 (08:38→21:42)
[2019-03-29] MEDS: POTASSIUM CHLORIDE 10 MEQ TABCR PO SCH (08:39)
[2019-03-29] MEDS: ASPIRIN 81 MG ECTAB PO SCH (08:39)
[2019-03-29] MEDS: dilTIAZem HCL 240 MG CAPCR PO SCH (08:39)
--- NOTE | 2019-03-29 10:24 | Hospitalist Progress Note ---
Date of Service March 29, 2019 Assessment & Plan (1) Abdominal wall cellulitis: Patient presenting from home with reports of increasing abdominal erythema for the past 3 days. Not much improvement, possible underlying rash but no predisposing factors for rash -Afebrile, no leukocytosis since admission -Received IV ceftriaxone in the ED; started Unasyn for concerns of possible cat scratch though patient doesnt think so. MRSA-neg --> Day 2 -No open areas or drainage to culture; no signs of abscess on exam -Blood cx- 2 - Negative (2) Atrial fibrillation with RVR: History of atrial fibrillation -Had not taken medications in the past 3 days so HR was in 110s when he came to ER, now normal rate -Received IV metoprolol 5 mg in the ED -Continue with home dose of diltiazem and metoprolol and maintaining HR in 80s -Coumadin- continue with INR subtherapeutic (3) Chronic diastolic CHF (congestive heart failure): No signs of exacerbation -Received 2 L IVF in the ED -Held diuretics initially, okay to restart today (4) CAD (coronary artery disease): -Stable, no reports of chest pain -Continue aspirin, statin, beta-shawnee, DIONICIO inhibitor (5) DM type 2 (diabetes mellitus, type 2): -Hgb A1c 7.2 03/2019 -Hold oral agents and utilize Lantus and NovoLog per protocol while hospitalized -Glycemic pharmacy consult (6) Hypertension: -BP controlled, continue lisinopril, diltiazem, metoprolol (7) Depression: -Continue venlafaxine and bupropion (8) SOLEDAD on CPAP: -CPAP as per home settings (9) Hypothyroidism: -Continue levothyroxine Obesity Counseling done about weight loss (10) DVT prophylaxis: -SQ Lovenox 40 mg until INR > 2.0 Disposition Ok to discontinue telemetry Medical mx in progresscontinues to be on IV antibiotics Expected discharge home when stable Subjective Patient continues to have significant abdominal wall redness. Soreness is improved. No fever, chills, nausea, vomiting. Denies any complaints Physical Exam Physical Exam: GENERAL- AAOX3, No acute distress, OBESE + LUNGS- Air entry bilaterally equal. No rales, rhonchi, crackles, wheezes heard. HEART- Regular rate and rhythm. No murmurs ABDOMEN- Erythema involving significant area of abdomen (marked), Soft, non tender, non distended EXTREMITIES- Good peripheral pulses, no edema Results & Data Vital Signs (Past 12 Hours) Vital Signs Temp Pulse Pulse Resp BP Pulse Ox 03/29/19 07:09 36.5 C 81 18 112/75 94 03/29/19 03:26 36.5 C 76 20 126/79 90 03/29/19 00:01 86 03/28/19 23:24 36.4 C L 87 20 113/72 93 03/28/19 22:33 75
--- NOTE | 2019-03-29 12:13 | Pharmacy Report ---
Pharmacy Glycemic Short Note 2 - Date of Service March 29, 2019 - Glycemic Short BSG Results (Last 24 hours): 03/28/19 03/28/19 03/28/19 11:16 16:46 20:22 Glucose POC Glucose 154 H 141 H 156 H 03/29/19 03/29/19 03/29/19 01:55 02:21 05:42 Glucose 140 H POC Glucose 141 H 149 H 03/29/19 03/29/19 08:25 11:49 Glucose POC Glucose 131 H 194 H OUTPATIENT ANTIDIABETIC REGIMEN (confirmed with patient at bedside): * Insulin Degludec U200 (Tresiba) 80 units Q HS * Humalog SQ with meals, typically ~ 5 units per meal. Patient states he counts carbs and uses CR of 1 unit per 5gm CHO's. Eats carb restricted diet. * Dulaglutide (Trulicity) 1.5mg SQ weekly on Mondays * Metformin 1000mg PO BID * A1c = 7.2% 03/19/19 The patient is currently receiving: * Basal Insulin: Lantus 70 units SQ x 1 last evening * Correctional Insulin: Novolog Correction per scale ACHS Goal Range: Low 110 mg/dL - High 140 mg/dL Correction Factor: 20 mg/dL/unit * Prandial Insulin: Per carb ratio of 1 unit per 6 grams CHO consumed * Oral Agents: None ASSESSMENT: * 69yo well controlled T2DM female per recent A1c * Outpatient insulin regimen is very basal heavy - empirically reduced basal insulin dosing in house d/t decreased PO intake and to re-distribute regimen to 50% basal:50% bolus insulin. * AM fasting BSG is in goal range at 131 mg/dl with 60 units of basal insulin on board * No CHO coverage given at breakfast - unsure if patient ate or not. BSG slightly hyperglycemic prior to lunch - will tighten CF/CR slightly. PLAN FOR INPATIENT GLYCEMIC CONTROL: * Hold outpatient oral diabetes medications (metformin, * Basal insulin * Lantus Q HS per the following scale: * 60 units if BSG below 140mg/dl * 70 units if BSG 140mg/dl or above * Bolus insulin: tighten CF/CR * NovoLog per scale ACHS or Q6hrs while NPO * Goal Range: Low 110 mg/dL - High 140 mg/dL * Correction Factor: 15 mg/dL/unit * Nutritional / Prandial insulin per carb ratio of 1 unit per 5 grams CHO consumed PLAN FOR DISCHARGE: * A1c at goal ; may resume home regimen on discharge if no contraindications present
[2019-03-29] MEDS: WARFARIN SOD 6 MG TAB PO SCH (15:50)
[2019-03-29] MEDS: FUROSEMIDE 20 MG TAB PO SCH (17:18)
[2019-03-29] MEDS: INSULIN GLARGINE 100 UNIT/ML VIAL SC SCH (21:34)
[2019-03-29] MEDS: ENOXAPARIN INJ 40 MG/0.4 ML SYR SQ SCH (21:35)
[2019-03-29] MEDS: MONTELUKAST SODIUM 10 MG TABLET PO SCH (21:42)
[2019-03-29] MEDS: ATORVASTATIN 40 MG TAB PO SCH (21:42)
[2019-03-30] MEDS: AMPICILLIN/SULBACTAM SOD 3,000 MG in 0.9 % SODIUM CHLORIDE 100 ML IV SCH ×2 (02:12→08:02)
[2019-03-30] MEDS: LEVOTHYROXINE SODIUM 88 MCG TABLET PO SCH (06:08)
[2019-03-30 06:33] LABS: INR 2.4 (0.9-1.1)
[2019-03-30 07:12] VITALS: TEMP 98.2; O2SAT 92
[2019-03-30 08:01] VITALS: BP 123/79
[2019-03-30] MEDS: METOPROLOL TARTRATE 100 MG TAB PO SCH (08:02)
[2019-03-30] MEDS: POTASSIUM CHLORIDE 10 MEQ TABCR PO SCH (08:03)
[2019-03-30] MEDS: LISINOPRIL 2.5 MG TAB PO SCH (08:04)
[2019-03-30] MEDS: dilTIAZem HCL 240 MG CAPCR PO SCH (08:04)
[2019-03-30] MEDS: FUROSEMIDE 20 MG TAB PO SCH (08:04)
[2019-03-30] MEDS: ASPIRIN 81 MG ECTAB PO SCH (08:04)
[2019-03-30] MEDS: VENLAFAXINE HCL XR 150 MG CAPXR PO SCH (08:05)
[2019-03-30] MEDS: BuPROPion SR 100 MG TABCR PO SCH (08:05)
[2019-03-30] MEDS: VENLAFAXINE HCL XR 75 MG CAPXR PO SCH (08:05)
[2019-03-30] MEDS: CHOLECALCIFEROL 1,000 UNITS TAB PO SCH (08:05)
[2019-03-30] MEDS: MULTIVITAMIN TAB PO SCH (08:06)
[2019-03-30] MEDS: INSULIN ASPART 100 UNITS/ML 3 ML PEN SC SCH (08:08)
[2019-03-30] MEDS: DOCUSATE SODIUM/SENNA 50/8.6MG TAB PO SCH (08:20)
--- NOTE | 2019-03-30 10:15 | Hospitalist Progress Note ---
Date of Service March 30, 2019 Assessment & Plan (1) Abdominal wall cellulitis: Patient presenting from home with reports of increasing abdominal erythema for the past 3 days. Clinically improvement in redness - 50% improved. -Afebrile, no leukocytosis since admission -Received IV ceftriaxone in the ED; started Unasyn for concerns of possible cat scratch though patient doesnt think so. MRSA-neg --> Day 3--> Change to PO Augmentin x 7 more days to complete 10 days of antibiotics -No open areas or drainage to culture; no signs of abscess on exam -Blood cx- 2 - Negative (2) Atrial fibrillation with RVR: History of atrial fibrillation -Had not taken medications in the past 3 days so HR was in 110s when he came to ER, now normal rate -Received IV metoprolol 5 mg in the ED -Continue with home dose of diltiazem and metoprolol and maintaining HR in 80s -Coumadin- continue with INR subtherapeutic (3) Chronic diastolic CHF (congestive heart failure): No signs of exacerbation -Received 2 L IVF in the ED -Held diuretics initially, restarted (4) CAD (coronary artery disease): -Stable, no reports of chest pain -Continue aspirin, statin, beta-shawnee, DIONICIO inhibitor (5) DM type 2 (diabetes mellitus, type 2): -Hgb A1c 7.2 03/2019 -Hold oral agents and utilize Lantus and NovoLog per protocol while hospitalized -Glycemic pharmacy consult (6) Hypertension: -BP controlled, continue lisinopril, diltiazem, metoprolol (7) Depression: -Continue venlafaxine and bupropion (8) SOLEDAD on CPAP: -CPAP as per home settings (9) Hypothyroidism: -Continue levothyroxine Obesity Counseling done about weight loss (10) DVT prophylaxis: -SQ Lovenox 40 mg until INR > 2.0 Disposition Okay to discharge home today Subjective Patient is doing much better. Abdominal wall redness has significantly improved. No pain. No fever, chills, nausea, vomiting. Physical Exam Physical Exam: GENERAL- AAOX3, No acute distress, OBESE + LUNGS- Air entry bilaterally equal. No rales, rhonchi, crackles, wheezes heard. HEART- Regular rate and rhythm. No murmurs ABDOMEN- Erythema involving significant area of abdomen (marked) --> Improved redness, Soft, non tender, non distended EXTREMITIES- Good peripheral pulses, no edema Results & Data Vital Signs (Past 12 Hours) Vital Signs Temp Pulse Pulse Resp BP BP Pulse Ox 03/30/19 08:01 64 123/79 03/30/19 07:11 36.8 C 86 18 134/83 92 03/29/19 23:17 36.3 C L 70 22 103/66 93 03/29/19 22:17 96 H 22 97
--- NOTE | 2019-03-30 10:19 | Discharge Summary ---
Date of Service March 30, 2019 Admission HPI Per Admitting Provider 69-year-old male who presents the ED for evaluation of skin infection/rash on his abdomen. Patient reports this developed about 3 days ago and has been progressively getting worse. Patient denies any known trauma or injury to his abdominal wall. However upon questioning, he does have cats and dogs as pets and reports that the cats walk over his abdomen. There is a small scratch noted on the abdomen where the patient reports the rash/infection started. He reports feeling generally weak. Reports a fever of 101 at home with some associated chills. Reports that he has felt lightheaded and dizzy however denies any syncopal event. He denies chest pain shortness of breath. No abdominal pain, nausea, vomiting, diarrhea. He denies any urinary symptoms. He reports sinus congestion, pressure, and postnasal drip which seems to be a chronic issue. Patient reports he has not taken his medications for the past 2 days and has forgotten to fill his pillbox. In the ED, patient was found to be in A. fib with RVR. He was given a total of 5 mg of IV metoprolol. Exam revealed an extensive cellulitis on his anterior abdominal wall. He is afebrile, no leukocytosis. BP stable. Lactic acid is mildly elevated 2.2. He was given IVF and IV ceftriaxone. Principal Diagnosis 1. Abdominal wall cellulitis Secondary diagnosis on discharge 1. Atrial fibrillation with RVR 2. Chronic diastolic congestive heart failure 3. Coronary artery disease 4. Diabetes mellitus type 2 5. Hypertension 6. Depression 7. Obstructive sleep apnea on CPAP 8. Hypothyroidism Discharge Exam GENERAL- AAOX3, No acute distress, OBESE + LUNGS- Air entry bilaterally equal. No rales, rhonchi, crackles, wheezes heard. HEART- Regular rate and rhythm. No murmurs ABDOMEN-erythema involving abdomensignificant improvement in redness. Soft, non tender, non distended, Bowel sounds heard. EXTREMITIES- Good peripheral pulses, no edema Discharge Data Allergies Allergy/AdvReac Type Severity Reaction Status Date / Time Iodinated Contrast- Oral and Allergy Unknown chest Verified 03/27/19 17:20 IV Dye pain/vomiting Penicillins Allergy Unknown UNKNOWN - Verified 03/27/19 17:20 HAPPENED CHILD Consultations 03/27/19 17:42 ED Decision to Admit Stat 07/09/19 19:03 Consult Case Management - Discharge Planning Routine Hospital Course (1) Abdominal wall cellulitis: Patient presenting from home with reports of increasing abdominal erythema for the past 3 days. Clinically improvement in redness - 50% improved. -Afebrile, no leukocytosis since admission -Received IV ceftriaxone in the ED; started Unasyn for concerns of possible cat scratch though patient doesnt think so. MRSA-neg --> Day 3--> Change to PO Augmentin x 7 more days to complete 10 days of antibiotics -No open areas or drainage to culture; no signs of abscess on exam -Blood cx- 2 - Negative (2) Atrial fibrillation with RVR: History of atrial fibrillation -Had not taken medications in the past 3 days so HR was in 110s when he came to ER, now normal rate -Received IV metoprolol 5 mg in the ED -Continue with home dose of diltiazem and metoprolol and maintaining HR in 80s -Coumadin- continue with INR subtherapeutic (3) Chronic diastolic CHF (congestive heart failure): No signs of exacerbation -Received 2 L IVF in the ED -Held diuretics initially, restarted (4) CAD (coronary artery disease): -Stable, no reports of chest pain -Continue aspirin, statin, beta-shawnee, DIONICIO inhibitor (5) DM type 2 (diabetes mellitus, type 2): -Hgb A1c 7.2 03/2019 -Hold oral agents and utilize Lantus and NovoLog per protocol while hospitalized -Glycemic pharmacy consult (6) Hypertension: -BP controlled, continue lisinopril, diltiazem, metoprolol (7) Depression: -Continue venlafaxine and bupropion (8) SOLEDAD on CPAP: -CPAP as per home settings (9) Hypothyroidism: -Continue levothyroxine Obesity Counseling done about weight loss (10) DVT prophylaxis: -SQ Lovenox 40 mg until INR > 2.0 Disposition Okay to discharge home today Total Time Total Time Spent Total Time Spent (In Minutes): 38 MINUTES Discharge Plan Discharge Items Patient Disposition: Home - Self-Care Reason For Visit: ABDOMINAL WALL CELLULITIS Discharge Diagnosis: Abdominal wall cellulitis Discharge Goals: Decrease discomfort Activity: Resume your previous activity Non-emergency contact: Primary Care Provider Call non-emergency contact if: your symptoms worsen Follow-up/Referrals: Aurora Lawrence DO [Primary Care Provider] - 04/05/19 1:15 pm Diet: Carb Consistent or DM2, Low Fat and Low Sodium (2gm) Addtl Provider Instructions: MEDICATION CHANGES New medication s- Augmentin PO twice a day x 7 days to complete 10-day course of antibiotics Prescriptions: New amoxicillin-pot clavulanate [Augmentin] 875-125 mg tablet 1 tab PO BID Qty: 14 RF: 0 Continued venlafaxine 75 mg capsule,extended release 24hr 75 mg PO QAM RF: 0 diltiazem HCl [DILT-XR] 240 mg capsule,ext.rel 24h degradable 240 mg PO QAM RF: 0 venlafaxine 150 mg capsule,extended release 24hr 150 mg PO QAM RF: 0 Tresiba FlexTouch U-200 200 unit/mL (3 mL) insulin pen 80 unit subcut HS RF: 0 Trulicity 1.5 mg/0.5 mL pen injector 1.5 mg subcut WK RF: 0 atorvastatin 40 mg tablet 40 mg PO HS RF: 0 levothyroxine 88 mcg tablet 88 mcg PO QAM RF: 0 warfarin 6 mg tablet 6 mg PO SUTUTHSA RF: 0 warfarin 6 mg tablet 9 mg PO MOWEFR RF: 0 bupropion HCl 200 mg tablet sustained-release 12 hr 200 mg PO BID RF: 0 fluticasone propionate [Flonase Allergy Relief] 50 mcg/actuation Hut[place],Suspension 2 spray INTRANASAL DAILY PRN (Reason: Nasal Congestion) RF: 0 insulin lispro [Humalog KwikPen Insulin] 100 unit/mL insulin pen subcut TIDM RF: 0 multivitamin Tablet 1 tab PO QAM RF: 0 potassium chloride 10 mEq Capsule, Extended Release 10 meq PO QAM RF: 0 metoprolol tartrate 100 mg Tablet 150 mg PO BID RF: 0 sennosides-docusate sodium 8.6-50 mg Tablet 1 tab PO Q2D RF: 0 aspirin [Aspir-81] 81 mg Tablet,Delayed Release (Dr/Ec) 162 mg PO DAILY RF: 0 spironolactone 25 mg Tablet 25 mg PO QPM RF: 0 diphenhydramine HCl 25 mg Capsule 25 mg PO BID RF: 0 metformin 1,000 mg Tablet 1,000 mg PO BID RF: 0 montelukast 10 mg Tablet 10 mg PO PM RF: 0 furosemide 20 mg Tablet 20 mg PO BID RF: 0 lisinopril 2.5 mg Tablet 2.5 mg PO QAM RF: 0 cholecalciferol (vitamin D3) 2,000 unit Tablet 4,000 unit PO QAM RF: 0 Stand-Alone Forms: [facility] Discharge Orders: Discharge Order (Routine); Ordered 03/30/19 Ordered By: Renate Rosa Admission Data Admit Date/Time: 03/27/19 17:59 Attending Provider: Renate Rosa Admit Provider: Ed Roque Primary Care Provider: Aurora Lawrence Other Providers: Ed Roque Service: Medical
[2019-03-30 11:12] VITALS: PULSE 77
== END 2019-03-30 12:15 | disposition home or self-care (01) | DRG 603 ==
LOC: ED 15:04 → 2S 17:59 → 2W 03-28 13:58
DX: Z88.0 Allergy status to penicillin; I48.2 Chronic atrial fibrillation; I11.0 Hypertensive heart disease with heart failure; E11.9 Type 2 diabetes mellitus without complications; L03.311 Cellulitis of abdominal wall; E78.5 Hyperlipidemia, unspecified; Z87.891 Personal history of nicotine dependence; Z91.041 Radiographic dye allergy status; Z79.01 Long term (current) use of anticoagulants; I25.10 Atherosclerotic heart disease of native coronary artery without angina pectoris; I50.32 Chronic diastolic (congestive) heart failure; N40.0 Benign prostatic hyperplasia without lower urinary tract symptoms; Z79.84 Long term (current) use of oral hypoglycemic drugs; E66.9 Obesity, unspecified; Z90.49 Acquired absence of other specified parts of digestive tract; M10.9 Gout, unspecified; G47.33 Obstructive sleep apnea (adult) (pediatric); Z68.36 Body mass index [BMI] 36.0-36.9, adult; I25.2 Old myocardial infarction; Z79.82 Long term (current) use of aspirin

== ENCOUNTER 2023-04-01 13:34 | Inpatient (IN) ==
[2023-04-01 14:13] LABS: Basophils # (auto) 0.06 K/uL (0-0.2); Basophils % (auto) 0.6 %; Hematocrit (blood only) 42.2 % (42.0-52.0); Immature Granulocytes % (auto) 0.9 %; Lymphocytes # (auto) 1.94 K/uL (1.2-3.4); Lymphocytes % (auto) 18.3 %; Mean Corpuscular Hemoglobin 29.5 pg (25.0-34.0); Mean Corpuscular Hgb Conc 33.2 g/dL (32.0-36.0); Mean Platelet Volume 9.5 fL (9.4-12.4); Monocytes % (auto) 8.5 %; Neutrophils # (auto) 7.58 K/uL (1.40-6.50); Neutrophils % (auto) 71.7 %; Platelet Count 243 K/uL (130-400); RDW Coefficient of Variation 14.1 % (11.5-14.5); RDW Standard Deviation 45.5 fL (36.4-46.3); Red Blood Count 4.74 M/uL (4.70-6.10); White Blood Count 10.58 K/ul (4.8-10.8)
[2023-04-01] MEDS ORDERED: cefTRIAXone SODIUM 2,000 MG/70 ML BAG IV STA (14:21)
[2023-04-01] MEDS ORDERED: DOXYCYCLINE HYCLATE 100 MG CAP PO STA (14:21)
[2023-04-01 14:29] LABS: Albumin Globulin Ratio 1.4 (0.9-2); Albumin Level 4.4 gm/dl (3.4-5.0); BUN Creatinine Ratio 14.3 (10-20); Bilirubin,Total 1.3 mg/dl (0.2-1.0); Calcium 9.9 mg/dl (8.6-10.3); Creatinine Clr Calc Pharmacy 95.9 ml/min; Est GFR (African American) 102.1 ml/min; Est GFR (Non-African American) 88.1 ml/min; Globulin 3.2 gm/dl (2.5-4.0); Magnesium 1.9 mg/dl (1.7-2.4); Potassium 4.4 mmol/L (3.5-5.1); Total Protein 7.6 gm/dl (6.0-8.3)
--- NOTE | 2023-04-01 14:31 | Emergency Department Note ---
Impression & Plan Cellulitis, Elevated lactic acid level, Failure of outpatient treatment ED Provider Note NAME: ALYCE CARRERA AGE: 73 SEX: M : 1950 ARRIVES VIA: Walk-In INFORMANT: [Patient] ED PROVIDER(S): [Lino Rock MD] CHIEF COMPLAINT: Infection HISTORY OF PRESENT ILLNESS: The patient is a 73-year-old male who states that he had pain in the dorsal right foot for 2 weeks but then 2 days ago, developed some redness to the outer aspect of the right foot. He had some chills. Patient went to the wound center and they diagnosed him with cellulitis. The placed him on Keflex, he started it Tuesday evening. The patient states that the foot erythema has spread. He continues to have some chills and nausea. No vomiting. He is concerned that the infection is worsening despite the antibiotics. No cough or congestion. No shortness of breath. Patient is diabetic. He does have a history of A-fib and does take Eliquis daily PMHx/PSHx: See Below SOCIAL HISTORY: See Below. PHYSICAL EXAM: GENERAL: Patient is in no acute distress. HEENT: No acute trauma, normocephalic atraumatic, mucous membranes moist, no nasal congestion. NECK: No stridor, no adenopathy, no meningismus, trachea is midline. LUNGS: Clear to auscultation bilaterally, no wheeze, no rhonchi, breath sounds equal. HEART: No murmurs, irregular rhythm, normal rate. ABDOMEN: Soft, nontender, bowel sounds positive, no peritonitis. EXTREMITIES: No cyanosis. Patient does have erythema and warmth to the dorsal lateral aspect of the right foot. The right fourth toe is involved. No drainage. No ascending infection past the ankle. NEUROLOGIC: Oriented x 3, no acute motor or sensory deficits, no focal weakness. SKIN: No jaundice, no diaphoresis. DIFFERENTIAL DIAGNOSIS: Failed outpatient management, cellulitis, contusion, abscess, neurovascular compromise, gout, bacteremia or sepsis, among others. EMERGENCY DEPARTMENT COURSE/PROCEDURES: Prior/Outside records reviewed: None. MEDICAL DECISION MAKING: There is no leukocytosis or concerning anemia. There is a normal platelet count. No renal failure or significant electrolyte abnormality. No concerning liver enzyme elevation. Lactic acid level was elevated at over 3, this would be consistent with infection and/or dehydration. The patient appeared to be in a euthyroid state. COVID test returned negative. On exam, the patient did have erythema and warmth to the right foot and ankle. No drainage. The patient received IV saline for hydration. He received oral doxycycline and IV ceftriaxone. The patient presents with worsening of his right foot cellulitis despite antibiotics prescribed outpatient. He has a history of requiring hospitalization for previous cellulitis. He does have a lactic acid elevation. Hospitalization does seem indicated. I did speak with the patient and case management, the on-call hospitalist was consulted. DISPOSITION: Patient's presentation and findings warrant a hospital stay. Past Med/Surg History Medical History Atrial fibrillation BPH (benign prostatic hyperplasia) CAD (coronary artery disease) Chronic anticoagulation Chronic diastolic CHF (congestive heart failure) Chronic rhinitis Depression DM type 2 (diabetes mellitus, type 2) Dyslipidemia Gout Hypertension Hypothyroidism SOLEDAD on CPAP Pacemaker Tachy-hao syndrome Surgical History History of appendectomy History of arthroscopy of left shoulder History of cholecystectomy History of repair of anterior cruciate ligament of left knee History of tonsillectomy and adenoidectomy S/P CABG x 3 S/P TURP Family History Father Bladder cancer Mother Breast cancer Heart disease Social History Smoking Status: Former smoker Smoking End Date: 40 years ago; Second Hand Exposure: No; Do You Dip or Chew Tobacco: No; Hx Alcohol Use: Yes Alcohol type: beer Hx Substance Use: No Preferred Language: Estonian Communication Ability: Effective Visual Impairment: No Limitations Discotheque Dancer Required: No Beliefs That Will Affect Care: None marital status: Current Living Situation: Spouse Current Living Situation Comment: with Other Information That Helps Us Care for You: No Feels Safe at Home: Yes Safety Concerns: Feels Safe At This Time Assistive Devices: Glasses Allergies Allergies Allergy/AdvReac Type Severity Reaction Status Date / Time Iodinated Contrast Media Allergy Unknown chest Verified 02/08/23 10:58 pain/vomiting Penicillins Allergy Unknown UNKNOWN - Verified 02/08/23 10:58 HAPPENED CHILD Home Meds Home Medications Medication Instructions Recorded Confirmed aspirin 81 mg tablet,delayed 162 mg PO QAM 06/27/18 04/01/23 release (Aspir-) diphenhydramine HCl 25 mg capsule 25 mg PO BID 06/27/18 04/01/23 furosemide 20 mg tablet 20 mg PO BID 06/27/18 04/01/23 lisinopril 2.5 mg tablet 2.5 mg PO QAM 06/27/18 04/01/23 spironolactone 25 mg tablet 25 mg PO QAM 06/27/18 04/01/23 atorvastatin 40 mg tablet 40 mg PO HS 03/27/19 04/01/23 blood-glucose sensor (Dexcom G6 10/12/21 04/01/23 Sensor device) blood-glucose transmitter (Dexcom 10/12/21 04/01/23 G6 Transmitter device) pen needle, diabetic 32 gauge x 10/12/21 04/01/23 5/32" (BD Katya 2nd Gen Pen Needle) apixaban 5 mg tablet 5 mg PO BID 11/30/21 04/01/23 mecobalamin (vitamin B12) 1,000 2,000 mcg PO HS 10/28/22 04/01/23 mcg chewable tablet gabapentin 300 mg capsule 300 mg PO HS 04/01/23 04/01/23 insulin lispro 100 unit/mL 40 unit subcut ONCE 04/01/23 04/01/23 subcutaneous solution (Humalog U-100 Insulin) Previous Rx's Medication Instructions Recorded levothyroxine 88 mcg tablet 88 mcg PO QAM #90 tabs 08/02/22 metformin 1,000 mg tablet 1,000 mg PO BID #180 tabs 09/21/22 metoprolol tartrate 50 mg tablet 50 mg PO BID #60 tabs 09/29/22 FreeStyle Lite Strips (blood sugar #100 ea 02/04/23 diagnostic) blood-glucose meter (FreeStyle #1 ea 02/04/23 Lite Meter kit) lancets 32 gauge #100 ea 02/04/23 Results & Data (ED) Vital Signs Vital Signs - 24 hr 04/01/23 13:37 04/01/23 16:20 Temperature 36.3 C L 36.7 C Temperature Source Temporal Artery Scan Oral Pulse Rate 116 H Pulse Rate [Radial] 73 Pulse Rhythm [Radial] Regular Pulse Strength [Radial] Normal Respiratory Rate 18 15 Respiratory Effort / Characteristics Non-Labored Non-Labored Spontaneous Respiratory Depth Normal Normal Respiratory Pattern Regular Regular Blood Pressure 143/83 H Blood Pressure [Right Arm] 102/60 Blood Pressure Mean 103 Blood Pressure Mean [Right Arm] 74 Pulse Oximetry 96 97 Oxygen Delivery Method Room Air Room Air Sepsis Recent Fever Within 48 Hours No Sepsis New/Unexplained Change in Mental Status No Sepsis Action Taken by Nursing No Action Required Home Medications Current Medication List: was personally reviewed by me Laboratory Data Attestation: I reviewed the patient's lab results. 04/01/23 13:54 04/01/23 13:54 Lab Results 04/01/23 04/01/23 04/01/23 Range/Units 13:54 13:54 14:50 WBC 10.58 (4.8-10.8) K/ul RBC 4.74 (4.70-6.10) M/uL Hgb 14.0 (14.0-18.0) g/dl Hct 42.2 (42.0-52.0) % MCV 89.0 (80.0-100.0) fL MCH 29.5 (25.0-34.0) pg MCHC 33.2 (32.0-36.0) g/dL RDW Std Deviation 45.5 (36.4-46.3) fL RDW Coeff of Adalberto 14.1 (11.5-14.5) % Plt Count 243 (130-400) K/uL MPV 9.5 (9.4-12.4) fL Immature Gran % (Auto) 0.9 % Neut % (Auto) 71.7 % Lymph % (Auto) 18.3 % Harnett % (Auto) 8.5 % Eos % (Auto) 0.0 % Baso % (Auto) 0.6 % Neut # (Auto) 7.58 H (1.40-6.50) K/uL Lymph # (Auto) 1.94 (1.2-3.4) K/uL Harnett # (Auto) 0.90 H (0.11-0.59) K/uL Eos # (Auto) 0.00 (0-0.50) K/uL Baso # (Auto) 0.06 (0-0.2) K/uL Immature Gran # (Auto) 0.10 (0.01-0.20) K/uL Sodium 136 (136-145) mmol/L Potassium 4.4 (3.5-5.1) mmol/L Chloride 99 (98-107) mmol/L Carbon Dioxide 28 (21-32) mmol/L Anion Gap 9 (3-11) BUN 12 (6-23) mg/dl Creatinine 0.84 (0.6-1.4) mg/dl Est Cr Clr Drug Dosing 95.9 ml/min Est GFR ( Amer) 102.1 ml/min Est GFR (Non-Af Amer) 88.1 ml/min BUN/Creatinine Ratio 14.3 (10-20) Glucose 111 H (70-99(Fasting)) mg/dl Lactate 3.2 H* (0.4-2.0) mmol/L Calcium 9.9 (8.6-10.3) mg/dl Magnesium 1.9 (1.7-2.4) mg/dl Total Bilirubin 1.3 H (0.2-1.0) mg/dl AST 18 (13-39) U/L ALT 11 (7-52) U/L Alkaline Phosphatase 79 (34-104) U/L Total Protein 7.6 (6.0-8.3) gm/dl Albumin 4.4 (3.4-5.0) gm/dl Globulin 3.2 (2.5-4.0) gm/dl Albumin/Globulin Ratio 1.4 (0.9-2) SARS-CoV-2, RNA, NAAT (NEGATIVE) 04/01/23 Range/Units 14:50 WBC (4.8-10.8) K/ul RBC (4.70-6.10) M/uL Hgb (14.0-18.0) g/dl Hct (42.0-52.0) % MCV (80.0-100.0) fL MCH (25.0-34.0) pg MCHC (32.0-36.0) g/dL RDW Std Deviation (36.4-46.3) fL RDW Coeff of Adalberto (11.5-14.5) % Plt Count (130-400) K/uL MPV (9.4-12.4) fL Immature Gran % (Auto) % Neut % (Auto) % Lymph % (Auto) % Harnett % (Auto) % Eos % (Auto) % Baso % (Auto) % Neut # (Auto) (1.40-6.50) K/uL Lymph # (Auto) (1.2-3.4) K/uL Harnett # (Auto) (0.11-0.59) K/uL Eos # (Auto) (0-0.50) K/uL Baso # (Auto) (0-0.2) K/uL Immature Gran # (Auto) (0.01-0.20) K/uL Sodium (136-145) mmol/L Potassium (3.5-5.1) mmol/L Chloride (98-107) mmol/L Carbon Dioxide (21-32) mmol/L Anion Gap (3-11) BUN (6-23) mg/dl Creatinine (0.6-1.4) mg/dl Est Cr Clr Drug Dosing ml/min Est GFR ( Amer) ml/min Est GFR (Non-Af Amer) ml/min BUN/Creatinine Ratio (10-20) Glucose (70-99(Fasting)) mg/dl Lactate (0.4-2.0) mmol/L Calcium (8.6-10.3) mg/dl Magnesium (1.7-2.4) mg/dl Total Bilirubin (0.2-1.0) mg/dl AST (13-39) U/L ALT (7-52) U/L Alkaline Phosphatase (34-104) U/L Total Protein (6.0-8.3) gm/dl Albumin (3.4-5.0) gm/dl Globulin (2.5-4.0) gm/dl Albumin/Globulin Ratio (0.9-2) SARS-CoV-2, RNA, NAAT NEGATIVE (NEGATIVE) Administered Medications Apixaban (Apixaban 5 Mg Tablet) 5 mg PO BID LEIGH Stop: 05/01/23 20:59 Last Admin: 04/01/23 22:04 Dose: 5 mg Documented By: [id number] Atorvastatin Calcium (Atorvastatin 40 Mg Tab) 40 mg PO HS LEIGH Stop: 05/01/23 20:59 Last Admin: 04/01/23 22:04 Dose: 40 mg Documented By: [id number] Diphenhydramine HCl (Diphenhydramine Capsule 25 Mg Cap) 25 mg PO BID LEIGH Stop: 05/01/23 20:59 Last Admin: 04/01/23 22:06 Dose: 25 mg Documented By: [id number] Gabapentin (Gabapentin 300 Mg Cap) 300 mg PO HS LEIGH Stop: 05/01/23 20:59 Last Admin: 04/01/23 22:06 Dose: 300 mg Documented By: [id number] Metoprolol Tartrate (Metoprolol Tartrate 50 Mg Tab) 50 mg PO BID LEIGH Stop: 05/01/23 20:59 Last Admin: 04/01/23 22:07 Dose: 50 mg Documented By: [id number] Discontinued Medications Doxycycline Hyclate (Doxycycline Hyclate 100 Mg Cap) 100 mg PO NOW STA Stop: 04/01/23 14:22 Last Admin: 04/01/23 15:13 Dose: 100 mg Documented By: LUDWIN Ceftriaxone Sodium (Rocephin) 2,000 mg in 70 mls @ 140 mls/hr IV NOW STA Stop: 04/01/23 14:50 Last Infusion: 04/01/23 15:49 Dose: 0 mls/hr Documented By: Admin: 04/01/23 15:13 Dose: 140 mls/hr Documented By: LUDWIN Sodium Chloride (Nss 1000ml) 1,000 mls @ 999 mls/hr IV .Q1H1M ONE Stop: 04/01/23 16:18 Last Infusion: 04/01/23 17:44 Dose: 0 mls/hr Documented By: Admin: 04/01/23 15:30 Dose: 999 mls/hr Documented By: LUDWIN Discharge Plan Visit Data Chief Complaint: Infection Stated Complaint: RT FOOT INFECTION ED Provider: Lino Rock Discharge Problem: Cellulitis, Elevated lactic acid level, Failure of outpatient treatment Patient Disposition: Admitted As Inpatient Condition: Good Discharge Instructions Interventions: ED Discharge Assessment Last Done: 04/01/23 18:33
[2023-04-01] MEDS ORDERED: SODIUM CHLORIDE 0.9% 1000ML 1,000 ML IV ONE (15:18)
--- NOTE | 2023-04-01 16:33 | History & Physical Report ---
Date of Service April 01, 2023 Assessment & Plan (1) Cellulitis of foot, right: Plan: Patient is 73-year-old male with PMH HTN, dyslipidemia, CAD s/p CABG, chronic diastolic heart failure, chronic atrial fibrillation anticoagulated on Eliquis, tachybradycardia syndrome s/p pacemaker, insulin-dependent DM II, BPH, SOLEDAD, hypothyroidism presented to ER with complaint of right foot redness x 3 days, today with chills, nausea. Outpatient treated with 2 days Keflex with worsening erythema In ER afebrile, initial HR: 116 down to 73, R:18. WBC: 10.5 Lactate: 3.2--> 1.8 In ER given 1L NSS, Rocephin, doxycycline Blood cultures pending On exam no signs of abscess or open wounds, No h/o MRSA Rocephin CBC in am If no improvement or worsening or develops abscess consider imaging (2) DM type 2 (diabetes mellitus, type 2): Plan: Insulin-dependent. On insulin pump A1c: 6.2 on 02/04/2023 Hold oral glycemic agents Continue insulin pump while inpatient. Patient can manage. Monitor BSG's (3) Atrial fibrillation: Plan: History of chronic atrial fibrillation. Anticoagulated on Eliquis Continue Eliquis, metoprolol tartrate (4) Chronic diastolic CHF (congestive heart failure): Plan: Currently appears euvolemic Hold Lasix and spironolactone today with elevated lactate. Reassess tomorrow (5) Hypertension: Plan: Continue metoprolol tartrate, lisinopril with holding parameters (6) CAD (coronary artery disease): Plan: S/P CABG Denies chest pain, shortness of breath Continue aspirin, atorvastatin, lisinopril (7) Tachy-hao syndrome: (8) Pacemaker: Plan: S/P pacemaker (9) Hypothyroidism: Plan: Continue levothyroxine DVT Prophylaxis On Eliquis Full Code as per discussion with pt Follows with Dr Aurora Lawrence for routine care Pt was seen and care coordinated with Dr Zuluaga. See addendum I spent a total of 75 minutes reviewing notes, outpatient records, labs, medication, coordinating, documenting and providing care for this patient excluding time spent in the performance of separately billed services. History of Present Illness Chief Complaint: Foot redness Primary Care Provider: Aurora Lawrence DO Patient is 73-year-old male with PMH HTN, dyslipidemia, CAD s/p CABG, chronic diastolic heart failure, chronic atrial fibrillation anticoagulated on Eliquis, tachybradycardia syndrome s/p pacemaker, insulin-dependent DM II, BPH, SOLEDAD, hypothyroidism presented to ER with complaint of right foot redness x 3 days. Patient states approximately 1 to 2 weeks ago started with discomfort to right dorsal foot. He denies any known injury, wounds. 3 days ago started with erythema and increased tenderness to dorsal foot. Was seen at wound clinic for left toe ulcer and they evaluate her right foot and diagnosed him with cellulitis and started on Keflex. Patient states has taken 2 days of Keflex. Reports over the past 24 hours has had significant worsening with increased erythema and increased tenderness. He also reports nausea, chills. Denies any recorded fever, vomiting. Denies missed doses of home medications. Denies diaphoresis, diarrhea, constipation, LIAO, dizziness, syncope, CP, SOB, palpitations, cough, sore throat, choking, otalgia, abdominal pain, paresthesias, extremity weakness, other extremity edema, other rashes, urinary symptoms, or insect bites. Denies history of MRSA. Allergies Allergy/AdvReac Type Severity Reaction Status Date / Time Iodinated Contrast Media Allergy Unknown chest Verified 02/08/23 10:58 pain/vomiting Penicillins Allergy Unknown UNKNOWN - Verified 02/08/23 10:58 HAPPENED CHILD Home Medications Medication Instructions Recorded Confirmed Type aspirin 81 mg tablet,delayed 162 mg PO QAM 06/27/18 04/01/23 History release (Aspir-) diphenhydramine HCl 25 mg capsule 25 mg PO BID 06/27/18 04/01/23 History furosemide 20 mg tablet 20 mg PO BID 06/27/18 04/01/23 History lisinopril 2.5 mg tablet 2.5 mg PO QAM 06/27/18 04/01/23 History spironolactone 25 mg tablet 25 mg PO QAM 06/27/18 04/01/23 History atorvastatin 40 mg tablet 40 mg PO HS 03/27/19 04/01/23 History blood-glucose sensor (Dexcom G6 10/12/21 04/01/23 History Sensor device) blood-glucose transmitter (Dexcom 10/12/21 04/01/23 History G6 Transmitter device) pen needle, diabetic 32 gauge x 10/12/21 04/01/23 History 5/32" (BD Katya 2nd Gen Pen Needle) apixaban 5 mg tablet 5 mg PO BID 11/30/21 04/01/23 History levothyroxine 88 mcg tablet 88 mcg PO QAM #90 tabs 08/02/22 04/01/23 Rx metformin 1,000 mg tablet 1,000 mg PO BID #180 tabs 09/21/22 04/01/23 Rx metoprolol tartrate 50 mg tablet 50 mg PO BID #60 tabs 09/29/22 04/01/23 Rx mecobalamin (vitamin B12) 1,000 2,000 mcg PO HS 10/28/22 04/01/23 History mcg chewable tablet FreeStyle Lite Strips (blood sugar #100 ea 02/04/23 04/01/23 Rx diagnostic) blood-glucose meter (FreeStyle #1 ea 02/04/23 04/01/23 Rx Lite Meter kit) lancets 32 gauge #100 ea 02/04/23 04/01/23 Rx gabapentin 300 mg capsule 300 mg PO HS 04/01/23 04/01/23 History insulin lispro 100 unit/mL 40 unit subcut ONCE 04/01/23 04/01/23 History subcutaneous solution (Humalog U-100 Insulin) Past Med/Surg History Medical History Atrial fibrillation BPH (benign prostatic hyperplasia) CAD (coronary artery disease) Chronic anticoagulation Chronic diastolic CHF (congestive heart failure) Chronic rhinitis Depression DM type 2 (diabetes mellitus, type 2) Dyslipidemia Gout Hypertension Hypothyroidism SOLEDAD on CPAP Pacemaker Tachy-hao syndrome Surgical History History of appendectomy History of arthroscopy of left shoulder History of cholecystectomy History of repair of anterior cruciate ligament of left knee History of tonsillectomy and adenoidectomy S/P CABG x 3 S/P TURP Family History Father Bladder cancer Mother Breast cancer Heart disease Social History Smoking Status: Former smoker Smoking End Date: 40 years ago; Second Hand Exposure: No; Do You Dip or Chew Tobacco: No; Hx Alcohol Use: Yes Alcohol type: beer Hx Substance Use: No Preferred Language: Kiswahili Communication Ability: Effective Visual Impairment: No Limitations Sales Enablement Lead Required: No Beliefs That Will Affect Care: None marital status: Current Living Situation: Spouse Current Living Situation Comment: with Other Information That Helps Us Care for You: No Feels Safe at Home: Yes Safety Concerns: Feels Safe At This Time Assistive Devices: Glasses Review of Systems Review of Systems: All systems reviewed & are unremarkable except as noted in HPI & below Physical Exam Physical Exam: General: no acute distress, WDWN Head: normocephalic, atraumatic Eyes: conjunctiva non-injected, anicteric ENT: normal inspection external ears, nose, mucous membranes moist Neck: supple, trachea midline Lungs: clear, no respiratory distress, no wheezing/rhonchi/rales CV: irregularly irregular, no murmur, no pretibial edema Abd: normal BS, soft, non-tender Ext: no cyanosis, no calf tenderness; RLE: +edema, +erythema and warmth to dorsal and lateral right foot with tenderness to palpation, no fluctuance, no open wounds noted, distal pulses palpable Neuro: A&O x 3, no focal deficits noted, normal affect Skin: warm, dry Results & Data Results & Data Vital Signs (Past 12 Hours) Vital Signs Temp Pulse Pulse Resp BP BP Pulse Ox 04/01/23 16:20 36.7 C 73 15 102/60 97 04/01/23 13:37 36.3 C L 116 H 18 143/83 H 96 O2 Del Method 04/01/23 16:20 Room Air 04/01/23 13:37 Room Air Laboratory Results Short CBC 04/01/23 Range/Units 13:54 WBC 10.58 (4.8-10.8) K/ul Hgb 14.0 (14.0-18.0) g/dl Hct 42.2 (42.0-52.0) % Plt Count 243 (130-400) K/uL BMP 04/01/23 13:54 Sodium 136 Potassium 4.4 Chloride 99 Carbon Dioxide 28 BUN 12 Creatinine 0.84 Glucose 111 H Calcium 9.9 Liver Function 04/01/23 Range/Units 13:54 Total Bilirubin 1.3 H (0.2-1.0) mg/dl AST 18 (13-39) U/L ALT 11 (7-52) U/L Alkaline Phosphatase 79 (34-104) U/L Albumin 4.4 (3.4-5.0) gm/dl Supervising Physician Co-Signing Physician Notes I have seen and examined the patient and have discussed the case with the provider above. I agree with the assessment and plan as stated with the following exceptions. 73 yo M presents with ongoing cellulitis of the top of the right foot despite oral keflex. He reports developing chills and malaise yesterday and reports no known nitus of infection. He does have a h/o cellulitis in the past. His 4th right toe is red and inflamed, different from the others. On exam he is also now hemodynamically stable after IVF. He is afebrile. He reports feeling better and denies pain except when he ambulates. His right foot is erythematous through the top and lateral ankle. There is swelling and heat> on the right. He is mildly tachycardic with an irregular rate and rhythm auscultated. S1/2 heard without murmur. Abdomen is soft NTND. Lungs are CTA throughout. He is WNWD. Workup in the ER includes a CBC and chem panel within normal limits. Lactate was initially elevated to 3.2 and after IVF is 1.8. Blood cultures are pending. 1. sepsis 2/2 right foot cellulitis 2. persistent atrial fibrillation with rapid ventricular response 3. DMII 4. Hypothyroidism After IVF in the ER, heart rate has normalized and so has repeat lactate. He appears resuscitated. Agree with continuing broad spectrum IV abx given infection was refractory to oral keflex and until he is clinically improved with cultures resulted. Monitor daily CBC. DO Zan
[2023-04-01] MEDS ORDERED: CARBOHYDRATES FOR HYPOGLYCEMIA PO PRN (19:04)
[2023-04-01] MEDS ORDERED: GLUCAGON FOR INJ 1 MG VIAL SQ PRN (19:04)
[2023-04-01] MEDS ORDERED: POLYETHYLENE (MIRALAX) 17 GM PACK PO PRN (19:04)
[2023-04-01] MEDS ORDERED: ACETAMINOPHEN 325 MG TAB PO PRN (19:04)
[2023-04-01] MEDS ORDERED: GLUCOSE 40% GEL 15 GM TUBE PO PRN (19:04)
[2023-04-01] MEDS ORDERED: DEXTROSE 50% 50 ML SYRINGE IV PRN (19:04)
[2023-04-01] MEDS ORDERED: ONDANSETRON INJ 2 MG/ML 2 ML VIAL IV PRN (19:04)
[2023-04-01] MEDS ORDERED: GLUCOSE 10 TAB/TUBE PO PRN (19:04)
[2023-04-01] MEDS ORDERED: ATORVASTATIN 40 MG TAB PO SCH (21:00)
[2023-04-01] MEDS: APIXABAN 5 MG TABLET PO SCH (22:04)
[2023-04-01] MEDS: diphenhydrAMINE Capsule 25 MG CAP PO SCH (22:06)
[2023-04-01] MEDS: GABAPENTIN 300 MG CAP PO SCH (22:06)
[2023-04-01] MEDS: METOPROLOL TARTRATE 50 MG TAB PO SCH (22:07)
[2023-04-02] MEDS: LEVOTHYROXINE SODIUM 88 MCG TABLET PO SCH (06:20)
[2023-04-02] MEDS: METOPROLOL TARTRATE 50 MG TAB PO SCH ×2 (08:05→21:37)
[2023-04-02] MEDS: APIXABAN 5 MG TABLET PO SCH ×2 (08:05→21:37)
[2023-04-02] MEDS: ASPIRIN 81 MG ECTAB PO SCH (08:05)
[2023-04-02] MEDS: diphenhydrAMINE Capsule 25 MG CAP PO SCH ×2 (08:05→21:37)
[2023-04-02] MEDS: lisinopril 2.5 MG TAB PO SCH (08:05)
[2023-04-02 08:24] LABS: Hematocrit (blood only) 37.3 % (42.0-52.0); Hemoglobin 12.4 g/dl (14.0-18.0); Mean Corpuscular Hemoglobin 29.2 pg (25.0-34.0); Mean Corpuscular Hgb Conc 33.2 g/dL (32.0-36.0); Mean Platelet Volume 9.4 fL (9.4-12.4); Platelet Count 184 K/uL (130-400); RDW Standard Deviation 45.3 fL (36.4-46.3); Red Blood Count 4.24 M/uL (4.70-6.10); White Blood Count 6.32 K/ul (4.8-10.8)
[2023-04-02 08:47] LABS: BUN Creatinine Ratio 18.2 (10-20); Calcium 8.8 mg/dl (8.6-10.3); Creatinine Clr Calc Pharmacy 122.8 ml/min; Est GFR (African American) 112.7 ml/min; Est GFR (Non-African American) 97.3 ml/min; Potassium 3.8 mmol/L (3.5-5.1)
[2023-04-02] MEDS ORDERED: cefTRIAXone SODIUM 2,000 MG in DEXTROSE 5% 50 ML IV SCH (09:00)
[2023-04-02] MEDS: DAPTOmycin 300 MG in SYRINGE 0 ML IV SCH (09:17)
--- NOTE | 2023-04-02 13:42 | Hospitalist Progress Note ---
Date of Service April 02, 2023 Assessment & Plan (1) Cellulitis of foot, right: Plan: per admitting service notes with addendum: Patient is 73-year-old male with PMH HTN, dyslipidemia, CAD s/p CABG, chronic diastolic heart failure, chronic atrial fibrillation anticoagulated on Eliquis, tachybradycardia syndrome s/p pacemaker, insulin-dependent DM II, BPH, SOLEDAD, hypothyroidism presented to ER with complaint of right foot redness x 3 days, today with chills, nausea. Outpatient treated with 2 days Keflex with worsening erythema In ER afebrile, initial HR: 116 down to 73, R:18. WBC: 10.5 Lactate: 3.2--> 1.8 In ER given 1L NSS, Rocephin, doxycycline Blood cultures pending On exam no signs of abscess or open wounds, No h/o MRSA Rocephin CBC in am If no improvement or worsening or develops abscess consider imaging 04/02 Still having pain, edema and erythema on the right foot Change antibiotic regimen from ceftriaxone to daptomycin plus cefepime IV day #1 Follow-up blood cultures Continue to monitor closely (2) DM type 2 (diabetes mellitus, type 2): Plan: Insulin-dependent. On insulin pump A1c: 6.2 on 02/04/2023 Hold oral glycemic agents Continue insulin pump while inpatient. Patient can manage. Monitor BSG's 04/02 BSG 97 -> 113 (3) Atrial fibrillation: Plan: History of chronic atrial fibrillation. Anticoagulated on Eliquis Continue Eliquis, metoprolol tartrate (4) Chronic diastolic CHF (congestive heart failure): Plan: Currently appears euvolemic Hold Lasix and spironolactone today with elevated lactate. Reassess tomorrow 04/02 Resume usual diuretics (5) Hypertension: Plan: Continue metoprolol tartrate, lisinopril with holding parameters (6) CAD (coronary artery disease): Plan: S/P CABG Denies chest pain, shortness of breath Continue aspirin, atorvastatin, lisinopril (7) Tachy-hao syndrome: (8) Pacemaker: Plan: S/P pacemaker (9) Hypothyroidism: Plan: Continue levothyroxine DVT Prophylaxis On Eliquis Full Code as per discussion with pt Follows with Dr Aurora Lawrence for routine care plan of care discussed with patient in detail all questions answered He is understanding, agreeable, comfortable with the plan of care Admission and Anticipated Discharge Date Admission Date: April 01, 2023 Subjective Follow-up for right foot cellulitis, etc. Seen resting in bed, comfortable, not in distress States right foot discomfort is about the same Last episodes of chills was last night No nausea or vomiting, headache, shortness of breath, chest pain, palpitations No other symptoms Review of Systems Review of Systems: all noted and negative except for above Physical Exam Physical Exam: General- oriented x 3, not in distress, speaks in sentences with no effort or accessory muscle use Head- atraumatic Eyes- PERRL, EOMI, anicteric ENT- oropharynx clear Neck- supple, no JVD, no adenopathy, no thyromegaly; carotids +2/2, no bruits appreciated Lungs- clear to auscultation bilaterally, no rales/wheezes Heart- normal rate, irregularly irregular rhythm; no murmur, no gallop, no rub appreciated Abdomen- normal bowel sounds, nondistended, soft, nontender, no masses or hepatosplenomegaly Extremities- Right lower extremity: Foot-positive moderate erythema, warmth, tenderness on the dorsal aspect-erythema not extending demarcation line Full range of motion due to pain Left lower extremity: No pretibial edema, no calf tenderness; peripheral pulses intact Neuro- alert, oriented x 3; CN 2-12 grossly intact; motor 5/5 bilaterally;sensation 100% on all extremities; no other gross focal neurologic deficits Skin- warm & dry Results & Data Results & Data Vital Signs (Past 12 Hours) Vital Signs Temp Pulse Resp BP BP Pulse Ox O2 Del Method 04/02/23 11:32 36.6 C 81 16 98/65 L 96 Room Air 04/02/23 09:00 Room Air 04/02/23 07:21 36.7 C 76 18 114/70 95 Room Air 04/02/23 04:03 36.8 C 88 16 101/69 94 Room Air all noted and reviewed including below
[2023-04-02] MEDS: ADVANCED PROBIOTIC 1250 MG CAPSULE PO SCH (13:52)
[2023-04-02] MEDS: SPIRONOLACTONE 25 MG TAB PO SCH (15:39)
[2023-04-02] MEDS: FUROSEMIDE 20 MG TAB PO SCH (17:34)
[2023-04-02] MEDS: CEFEPIME 2,000 MG in SYRINGE 0 ML IV SCH (17:35)
[2023-04-02] MEDS: GABAPENTIN 300 MG CAP PO SCH (21:37)
[2023-04-03] MEDS: CEFEPIME 2,000 MG in SYRINGE 0 ML IV SCH ×3 (01:44→18:11)
[2023-04-03] MEDS: LEVOTHYROXINE SODIUM 88 MCG TABLET PO SCH (05:56)
[2023-04-03] MEDS: lisinopril 2.5 MG TAB PO SCH (09:37)
[2023-04-03] MEDS: APIXABAN 5 MG TABLET PO SCH ×2 (09:37→21:15)
[2023-04-03] MEDS: FUROSEMIDE 20 MG TAB PO SCH ×2 (09:37→18:11)
[2023-04-03] MEDS: METOPROLOL TARTRATE 50 MG TAB PO SCH ×2 (09:37→21:15)
[2023-04-03] MEDS: diphenhydrAMINE Capsule 25 MG CAP PO SCH ×2 (09:37→21:15)
[2023-04-03] MEDS: DAPTOmycin 300 MG in SYRINGE 0 ML IV SCH (09:37)
[2023-04-03] MEDS: SPIRONOLACTONE 25 MG TAB PO SCH (09:38)
[2023-04-03] MEDS: ADVANCED PROBIOTIC 1250 MG CAPSULE PO SCH (09:38)
[2023-04-03] MEDS: ASPIRIN 81 MG ECTAB PO SCH (09:38)
[2023-04-03 10:51] LABS: Basophils # (auto) 0.04 K/uL (0-0.2); Basophils % (auto) 0.6 %; Eosinophils # (auto) 0.25 K/uL (0-0.50); Eosinophils % (auto) 3.8 %; Hematocrit (blood only) 38.6 % (42.0-52.0); Hemoglobin 12.9 g/dl (14.0-18.0); Immature Granulocytes # (auto) 0.06 K/uL (0.01-0.20); Immature Granulocytes % (auto) 0.9 %; Lymphocytes # (auto) 1.11 K/uL (1.2-3.4); Lymphocytes % (auto) 17.1 %; Mean Corpuscular Hemoglobin 29.1 pg (25.0-34.0); Mean Corpuscular Hgb Conc 33.4 g/dL (32.0-36.0); Mean Corpuscular Volume 86.9 fL (80.0-100.0); Mean Platelet Volume 9.4 fL (9.4-12.4); Monocytes # (auto) 0.39 K/uL (0.11-0.59); Neutrophils # (auto) 4.65 K/uL (1.40-6.50); Neutrophils % (auto) 71.6 %; Platelet Count 189 K/uL (130-400); RDW Standard Deviation 44.5 fL (36.4-46.3); Red Blood Count 4.44 M/uL (4.70-6.10)
[2023-04-03 10:55] LABS: BUN Creatinine Ratio 17.8 (10-20); Calcium 8.8 mg/dl (8.6-10.3); Creatinine Clr Calc Pharmacy 110.9 ml/min; Est GFR (African American) 108.2 ml/min; Est GFR (Non-African American) 93.3 ml/min; Potassium 4.1 mmol/L (3.5-5.1)
--- NOTE | 2023-04-03 16:46 | Hospitalist Progress Note ---
Date of Service April 03, 2023 Assessment & Plan (1) Cellulitis of foot, right: Plan: per admitting service notes with addendum: Patient is 73-year-old male with PMH HTN, dyslipidemia, CAD s/p CABG, chronic diastolic heart failure, chronic atrial fibrillation anticoagulated on Eliquis, tachybradycardia syndrome s/p pacemaker, insulin-dependent DM II, BPH, SOLEDAD, hypothyroidism presented to ER with complaint of right foot redness x 3 days, today with chills, nausea. Outpatient treated with 2 days Keflex with worsening erythema In ER afebrile, initial HR: 116 down to 73, R:18. WBC: 10.5 Lactate: 3.2--> 1.8 In ER given 1L NSS, Rocephin, doxycycline Blood cultures pending On exam no signs of abscess or open wounds, No h/o MRSA Rocephin CBC in am If no improvement or worsening or develops abscess consider imaging 04/03 Improving pain, edema and erythema on the right foot Continue daptomycin plus cefepime IV day #2 Blood cultures negative x48 hours Continue to monitor closely (2) DM type 2 (diabetes mellitus, type 2): Plan: Insulin-dependent. On insulin pump A1c: 6.2 on 02/04/2023 Hold oral glycemic agents Continue insulin pump while inpatient. Patient can manage. Monitor BSG's 04/03 BSG 98--160 (3) Atrial fibrillation: Plan: History of chronic atrial fibrillation. Anticoagulated on Eliquis Continue Eliquis, metoprolol tartrate (4) Chronic diastolic CHF (congestive heart failure): Plan: Currently appears euvolemic Hold Lasix and spironolactone today with elevated lactate. Reassess tomorrow 04/03 continue usual diuretics (5) Hypertension: Plan: Continue metoprolol tartrate, lisinopril with holding parameters (6) CAD (coronary artery disease): Plan: S/P CABG Denies chest pain, shortness of breath Continue aspirin, atorvastatin, lisinopril (7) Tachy-hao syndrome: (8) Pacemaker: Plan: S/P pacemaker (9) Hypothyroidism: Plan: Continue levothyroxine DVT Prophylaxis On Eliquis Full Code as per discussion with pt Follows with Dr Aurora Lawrence for routine care plan of care discussed with patient in detail all questions answered He is understanding, agreeable, comfortable with the plan of care Admission and Anticipated Discharge Date Admission Date: April 01, 2023 Subjective ff up for right foot cellulitis, etc. Seen resting in bed, comfortable, not distressed States right foot discomfort continues to improve along with swelling, redness Able to walk on the right foot better with less pain today compared to yesterday No fevers or chills No other symptoms Review of Systems Review of Systems: all noted and negative except for above Physical Exam Physical Exam: General- oriented x 3, not in distress, speaks in sentences with no effort or accessory muscle use Eyes- anicteric Neck- no JVD Lungs- clear BS BL Heart- normal rate, regular rhythm; no murmurs Abdomen- normal bowel sounds, nondistended, soft, nontender Extremities- LLE: no pretibial edema, no calf tenderness RLE: Foot-less erythema mostly on the dorsal lateral aspect, less edema, less tenderness Fourth toe also with less erythema and edema Better range of motion of the ankle and foot Neuro- alert, oriented x 3; no gross focal neurologic deficits Skin- warm & dry Results & Data Results & Data Vital Signs (Past 12 Hours) Vital Signs Temp Pulse Resp BP Pulse Ox O2 Del Method 04/03/23 15:55 36.4 C L 76 18 116/79 96 Room Air 04/03/23 11:09 36.4 C L 94 H 18 108/75 97 Room Air 04/03/23 07:54 36.6 C 98 H 18 115/80 94 Room Air all noted and reviewed including below
[2023-04-03] MEDS: GABAPENTIN 300 MG CAP PO SCH (21:15)
[2023-04-04] MEDS: CEFEPIME 2,000 MG in SYRINGE 0 ML IV SCH ×2 (00:54→08:50)
[2023-04-04] MEDS: LEVOTHYROXINE SODIUM 88 MCG TABLET PO SCH (05:36)
[2023-04-04] MEDS: APIXABAN 5 MG TABLET PO SCH (08:50)
[2023-04-04] MEDS: SPIRONOLACTONE 25 MG TAB PO SCH (08:50)
[2023-04-04] MEDS: FUROSEMIDE 20 MG TAB PO SCH (08:50)
[2023-04-04] MEDS: ASPIRIN 81 MG ECTAB PO SCH (08:50)
[2023-04-04] MEDS: diphenhydrAMINE Capsule 25 MG CAP PO SCH (08:50)
[2023-04-04] MEDS: ADVANCED PROBIOTIC 1250 MG CAPSULE PO SCH (08:50)
[2023-04-04] MEDS: lisinopril 2.5 MG TAB PO SCH (08:50)
[2023-04-04] MEDS: METOPROLOL TARTRATE 50 MG TAB PO SCH (08:50)
[2023-04-04] MEDS: DAPTOmycin 300 MG in SYRINGE 0 ML IV SCH (09:03)
--- NOTE | 2023-04-04 13:01 | Hospitalist Progress Note ---
Date of Service April 04, 2023 Assessment & Plan (1) Cellulitis of foot, right: Plan: per admitting service notes with addendum: Patient is 73-year-old male with PMH HTN, dyslipidemia, CAD s/p CABG, chronic diastolic heart failure, chronic atrial fibrillation anticoagulated on Eliquis, tachybradycardia syndrome s/p pacemaker, insulin-dependent DM II, BPH, SOLEDAD, hypothyroidism presented to ER with complaint of right foot redness x 3 days, today with chills, nausea. Outpatient treated with 2 days Keflex with worsening erythema In ER afebrile, initial HR: 116 down to 73, R:18. WBC: 10.5 Lactate: 3.2--> 1.8 In ER given 1L NSS, Rocephin, doxycycline Blood cultures pending On exam no signs of abscess or open wounds, No h/o MRSA Rocephin CBC in am If no improvement or worsening or develops abscess consider imaging 04/04 Clinically improved Erythema, edema much better Has minimal tenderness Has received 3 days of IV daptomycin plus cefepime Transition to linezolid 600 mg p.o. twice daily x7 days Blood cultures negative x48 hours Follow-up with PCP in 1 week (2) DM type 2 (diabetes mellitus, type 2): Plan: Insulin-dependent. On insulin pump A1c: 6.2 on 02/04/2023 Continue usual regimen at home (3) Atrial fibrillation: Plan: History of chronic atrial fibrillation. Anticoagulated on Eliquis Continue Eliquis, metoprolol tartrate (4) Chronic diastolic CHF (congestive heart failure): Plan: Currently appears euvolemic continue usual diuretics (5) Hypertension: Plan: Continue metoprolol tartrate, lisinopril with holding parameters (6) CAD (coronary artery disease): Plan: S/P CABG Denies chest pain, shortness of breath Continue aspirin, atorvastatin, lisinopril (7) Tachy-hao syndrome: (8) Pacemaker: Plan: S/P pacemaker (9) Hypothyroidism: Plan: Continue levothyroxine DVT Prophylaxis On Eliquis Full Code as per discussion with pt Follows with Dr Aurora Lawrence for routine care plan of care discussed with patient in detail all questions answered He is understanding, agreeable, comfortable with the plan of care Admission and Anticipated Discharge Date Admission Date: April 01, 2023 Results & Data Results & Data Vital Signs (Past 12 Hours) Vital Signs Pulse Pulse Resp BP Pulse Ox O2 Del Method FiO2 04/04/23 07:39 92 H 04/04/23 03:36 89 18 120/77 94 CPAP 04/04/23 02:50 20 21
--- NOTE | 2023-04-04 19:34 | Hospitalist Progress Note ---
Date of Service April 04, 2023 delayed entry date of service noted above Assessment & Plan (1) Cellulitis of foot, right: Plan: per admitting service notes with addendum: Patient is 73-year-old male with PMH HTN, dyslipidemia, CAD s/p CABG, chronic diastolic heart failure, chronic atrial fibrillation anticoagulated on Eliquis, tachybradycardia syndrome s/p pacemaker, insulin-dependent DM II, BPH, SOLEDAD, hypothyroidism presented to ER with complaint of right foot redness x 3 days, today with chills, nausea. Outpatient treated with 2 days Keflex with worsening erythema Blood cultures negative 04/05 Clinically improved Erythema, edema much better Has minimal tenderness Has received 3 days of IV daptomycin plus cefepime Transition to linezolid 600 mg p.o. twice daily x7 days Blood cultures negative x48 hours Follow-up with PCP in 1 week (2) DM type 2 (diabetes mellitus, type 2): Plan: Insulin-dependent. On insulin pump A1c: 6.2 on 02/04/2023 Continue usual regimen at home (3) Atrial fibrillation: Plan: History of chronic atrial fibrillation. Anticoagulated on Eliquis Continue Eliquis, metoprolol tartrate (4) Chronic diastolic CHF (congestive heart failure): Plan: Currently appears euvolemic continue usual diuretics (5) Hypertension: Plan: Continue metoprolol tartrate, lisinopril with holding parameters (6) CAD (coronary artery disease): Plan: S/P CABG Denies chest pain, shortness of breath Continue aspirin, atorvastatin, lisinopril (7) Tachy-hao syndrome: (8) Pacemaker: Plan: S/P pacemaker (9) Hypothyroidism: Plan: Continue levothyroxine plan of care discussed with patient in detail all questions answered He is understanding, agreeable, comfortable with the plan of care Admission and Anticipated Discharge Date Admission Date: April 01, 2023 Subjective ff up for R foot cellulitis, etc seen resting in bedside chair, comfortable states he feels fine overall R foot pain continues to improve, minimal now able to walk on the foot better no other symptoms states he is ready for discharge Review of Systems Review of Systems: all noted and negative except for above Physical Exam Physical Exam: General- oriented x 3, not in distress, speaks in sentences with no effort or accessory muscle use Eyes- anicteric Neck- no JVD Lungs- clear breath sounds bilaterally, no rales/wheezes Heart- normal rate, regular rhythm; no murmurs Abdomen- normal bowel sounds, nondistended, soft, nontender Extremities- no pretibial edema, no calf tenderness R foot: mild erythema on the dorsolateral aspect, no tenderness moderate erythema 4th toe with mild tenderness Neuro- alert, oriented x 3; no gross focal neurologic deficits Skin- warm & dry Results & Data Results & Data Vital Signs (Past 12 Hours) Vital Signs Temp Pulse Pulse Resp BP BP Pulse Ox 04/04/23 14:59 36.4 C L 89 18 98/65 L 120/77 94 04/04/23 07:39 92 H all noted and reviewed including below
--- NOTE | 2023-04-04 19:34 | Discharge Summary ---
Discharge Summary Date of Service April 04, 2023 delayed entry date of service noted above Notes For Next Care Provider Medication Changes From Visit Linezolid 600 mg p.o. twice daily x7 days Admission HPI Per Admitting Provider Patient is 73-year-old male with PMH HTN, dyslipidemia, CAD s/p CABG, chronic diastolic heart failure, chronic atrial fibrillation anticoagulated on Eliquis, tachybradycardia syndrome s/p pacemaker, insulin-dependent DM II, BPH, SOLEDAD, hypothyroidism presented to ER with complaint of right foot redness x 3 days. Patient states approximately 1 to 2 weeks ago started with discomfort to right dorsal foot. He denies any known injury, wounds. 3 days ago started with erythema and increased tenderness to dorsal foot. Was seen at wound clinic for left toe ulcer and they evaluate her right foot and diagnosed him with cellulitis and started on Keflex. Patient states has taken 2 days of Keflex. Reports over the past 24 hours has had significant worsening with increased erythema and increased tenderness. He also reports nausea, chills. Denies any recorded fever, vomiting. Denies missed doses of home medications. Denies diaphoresis, diarrhea, constipation, LIAO, dizziness, syncope, CP, SOB, palpitations, cough, sore throat, choking, otalgia, abdominal pain, paresthesias, extremity weakness, other extremity edema, other rashes, urinary symptoms, or insect bites. Denies history of MRSA. Admission Exam Per Admitting Provider General: no acute distress, WDWN Head: normocephalic, atraumatic Eyes: conjunctiva non-injected, anicteric ENT: normal inspection external ears, nose, mucous membranes moist Neck: supple, trachea midline Lungs: clear, no respiratory distress, no wheezing/rhonchi/rales CV: irregularly irregular, no murmur, no pretibial edema Abd: normal BS, soft, non-tender Ext: no cyanosis, no calf tenderness; RLE: +edema, +erythema and warmth to dorsal and lateral right foot with tenderness to palpation, no fluctuance, no open wounds noted, distal pulses palpable Neuro: A&O x 3, no focal deficits noted, normal affect Skin: warm, dry Principal Dx & Hospital Course #1 = Principal Diagnosis (1) Cellulitis of foot, right: per admitting service notes with addendum: Patient is 73-year-old male with PMH HTN, dyslipidemia, CAD s/p CABG, chronic diastolic heart failure, chronic atrial fibrillation anticoagulated on Eliquis, tachybradycardia syndrome s/p pacemaker, insulin-dependent DM II, BPH, SOLEDAD, hypothyroidism presented to ER with complaint of right foot redness x 3 days, today with chills, nausea. Outpatient treated with 2 days Keflex with worsening erythema Blood cultures negative 04/05 Clinically improved Erythema, edema much better Has minimal tenderness Has received 3 days of IV daptomycin plus cefepime Transition to linezolid 600 mg p.o. twice daily x7 days Blood cultures negative x48 hours Follow-up with PCP in 1 week (2) DM type 2 (diabetes mellitus, type 2): Insulin-dependent. On insulin pump A1c: 6.2 on 02/04/2023 Continue usual regimen at home (3) Atrial fibrillation: History of chronic atrial fibrillation. Anticoagulated on Eliquis Continue Eliquis, metoprolol tartrate (4) Chronic diastolic CHF (congestive heart failure): Currently appears euvolemic continue usual diuretics (5) Hypertension: Continue metoprolol tartrate, lisinopril with holding parameters (6) CAD (coronary artery disease): S/P CABG Denies chest pain, shortness of breath Continue aspirin, atorvastatin, lisinopril (7) Tachy-hao syndrome: (8) Pacemaker: S/P pacemaker (9) Hypothyroidism: Continue levothyroxine plan of care discussed with patient in detail all questions answered He is understanding, agreeable, comfortable with the plan of care Discharge Exam General- oriented x 3, not in distress, speaks in sentences with no effort or accessory muscle use Eyes- anicteric Neck- no JVD Lungs- clear breath sounds bilaterally, no rales/wheezes Heart- normal rate, regular rhythm; no murmurs Abdomen- normal bowel sounds, nondistended, soft, nontender Extremities- no pretibial edema, no calf tenderness R foot: mild erythema on the dorsolateral aspect, no tenderness moderate erythema 4th toe with mild tenderness Neuro- alert, oriented x 3; no gross focal neurologic deficits Skin- warm & dry Updated Medication List Medication Instructions Recorded Confirmed Type aspirin 81 mg tablet,delayed 162 mg PO QAM 06/27/18 04/01/23 History release (Aspir-) diphenhydramine HCl 25 mg capsule 25 mg PO BID 06/27/18 04/01/23 History furosemide 20 mg tablet 20 mg PO BID 06/27/18 04/01/23 History lisinopril 2.5 mg tablet 2.5 mg PO QAM 06/27/18 04/01/23 History spironolactone 25 mg tablet 25 mg PO QAM 06/27/18 04/01/23 History atorvastatin 40 mg tablet 40 mg PO HS 03/27/19 04/01/23 History blood-glucose sensor (Dexcom G6 10/12/21 04/01/23 History Sensor device) blood-glucose transmitter (Dexcom 10/12/21 04/01/23 History G6 Transmitter device) pen needle, diabetic 32 gauge x 10/12/21 04/01/23 History 532" (BD Katya 2nd Gen Pen Needle) apixaban 5 mg tablet 5 mg PO BID 11/30/21 04/01/23 History levothyroxine 88 mcg tablet 88 mcg PO QAM #90 tabs 08/02/22 04/01/23 Rx metformin 1,000 mg tablet 1,000 mg PO BID #180 tabs 09/21/22 04/01/23 Rx metoprolol tartrate 50 mg tablet 50 mg PO BID #60 tabs 09/29/22 04/01/23 Rx mecobalamin (vitamin B12) 1,000 2,000 mcg PO HS 10/28/22 04/01/23 History mcg chewable tablet FreeStyle Lite Strips (blood sugar #100 ea 02/04/23 04/01/23 Rx diagnostic) blood-glucose meter (FreeStyle #1 ea 02/04/23 04/01/23 Rx Lite Meter kit) lancets 32 gauge #100 ea 02/04/23 04/01/23 Rx gabapentin 300 mg capsule 300 mg PO HS 04/01/23 04/01/23 History insulin lispro 100 unit/mL 40 unit subcut ONCE 04/01/23 04/01/23 History subcutaneous solution (Humalog U-100 Insulin) linezolid 600 mg tablet 600 mg PO Q12H 7 days #14 tabs 04/04/23 Rx Hospital Stay Data Consultations 04/01/23 16:05 ED Decision to Admit Stat Pending Results Patient Have Any Pending Studies at Discharge: No Discharge Instructions Given to Patient (Per Discharging Provider) PLEASE REFER TO YOUR NEW MEDICATION LIST AND FOLLOW INSTRUCTIONS CAREFULLY. YOUR NEW MEDICATIONS INCLUDE: Linezolid-antibiotic for right foot infection Please take a probiotic for 2 to 3 weeks. Renew Life Brand recommended. Drink plenty of water. Elevate the foot at least twice a day. PLEASE CALL YOUR PRIMARY CARE PHYSICIAN OR RETURN TO THE ER IF WITH WORSENING OF SYMPTOMS, INCLUDING Increasing swelling, redness, tenderness, pain on the right foot, fevers or chills, diarrhea lasting more than 1 day, etc. FOLLOW UP WITH PRIMARY CARE PHYSICIAN OUTLINED ABOVE. Total Time Total Time Spent Total Time Spent (In Minutes): > 30 minutes
--- NOTE | 2023-04-05 08:43 | Coding Query ---
SEPSIS To promote full compliance with coding requirements relating to patient care, physician participation is requested in all cases of cook relief uncertainty. Please assist us with the question(s) below: In responding to this query, please exercise your independent professional judgement. The fact that a question is asked does not imply that any particular answer is desired or expected. We appreciate your clarification on this issue. Throughout the medical record, you have clearly documented a localized infection and your patient has clinical evidence of a generalized sepsis or severe sepsis. Sepsis is documented once in the H&P. The medical record reflects the following clinical findings: pulse >90/minute 04/01, 04/02, 04/04, respirations >20/minute 04/02, hyperglycemia without diabetes 04/01, 04/03, hypotension, metabolic acidosis (lactate 3.2) 04/01 ____ ()Bacteremia (Nonspecific laboratory finding of bacteria in the blood) Specify Organism () Present on Admission () Not present on admission () Unable to clinically determine () Septicemia (Systemic disease associated with the presence of pathogenic microorganisms in the blood): Specify Organism () Present on Admission () Not present on admission () Unable to clinically determine (x) Sepsis Specify Organism Specify Associated Condition/Diagnosis (x) Present on Admission () Not present on admission () Unable to clinically determine () Severe Sepsis (Sepsis associated with acute organ dysfunction) Specify Organism Specify Associated Condition/Diagnosis () Present on Admission () Not present on admission () Unable to clinically determine () Septic Shock (Severe sepsis with acute circulatory failure, unexplained by other causes) () Present on Admission () Not present on admission () Unable to clinically determine () Other, patient has: MTDD
== END 2023-04-04 15:10 | disposition home or self-care (01) | DRG 872 ==
LOC: ED 13:34 → 2N 16:43 → SUATTDRO 16:43 → 2N 18:33
DX: I48.19 Other persistent atrial fibrillation; Z87.891 Personal history of nicotine dependence; G47.33 Obstructive sleep apnea (adult) (pediatric); Z91.041 Radiographic dye allergy status; I50.32 Chronic diastolic (congestive) heart failure; A41.9 Sepsis, unspecified organism; Z79.01 Long term (current) use of anticoagulants; E03.9 Hypothyroidism, unspecified; Z95.0 Presence of cardiac pacemaker; Z79.890 Hormone replacement therapy; E78.5 Hyperlipidemia, unspecified; Z79.4 Long term (current) use of insulin; Z79.899 Other long term (current) drug therapy; Z95.1 Presence of aortocoronary bypass graft; N40.0 Benign prostatic hyperplasia without lower urinary tract symptoms; I11.0 Hypertensive heart disease with heart failure; L03.115 Cellulitis of right lower limb; E11.9 Type 2 diabetes mellitus without complications; I48.20 Chronic atrial fibrillation, unspecified; Z88.0 Allergy status to penicillin; I25.10 Atherosclerotic heart disease of native coronary artery without angina pectoris; Z79.82 Long term (current) use of aspirin